=== PATIENT | female | born 1950 | race Caucasian/White ===

== ENCOUNTER → 2016-04-10 | Outpatient (CLI) | payer OTHER, MEDICARE ==
[~2016-04-10] MED LIST: AMITRIPTYLINE H75 M1 PO; AMITRIPTYLINE75 MG PO; ASPIRIN 32325 MG/TAB PO; BONIVA PO; BONIVA150 MG PO; CALTRATE 600 +1 TAB PO; CALTRATE 600+D1 TAB PO; CLARITIN 1010 MG/TAB PO; COZAAR100 MG PO; CRUTCHES; CYMBALTA 60MG60 MG PO; CYMBALTA60 MG PO; DIAZEPAM2 MG PO; DULERA1 ARO IH; FOSINOPRIL10 MG PO; IMITREX25 MG PO; ISONIAZID100 MG PO; ISONIAZID300 MG PO; KETAMINE HCL 50 MG/ML PO; KETAMINE PO; LEVAQUIN 5500 MG/TA1 PO; METAMUCIL1 PDR PO; MONOPRIL10 MG PO; NEURONTIN100 MG/CAP PO; NORCO 325 MG-51 TAB PO; OMEGA-3 FISH1200 MG PO; OXYCONTIN20 MG PO; PERCOCET 325 MG1 TA2 PO; PREDNISONE20 MG PO; PRIFTIN150 MG PO; PROAIR HFA0.09 MG/AC IH; ROXICODONE 55 MG/TAB PO; ROXICODONE15 MG PO; SINGULAIR 110 MG/TAB PO; SYSTANE LUBRICAN5 ML OP; TOPAMAX200 MG PO; TUSS PO; VALIUM 2MG T2 MG/TAB PO; VITAMIN B-6100 MG PO; VITAMIN B11000 MCG/M IM; WELLBUTRIN XL150 MG PO; WOMEN'S ONE DAI1 TAB PO; ZANAFLEX CAPSULE2 MG PO; ZANAFLEX2 MG PO; ZITHROMAX 250M250 MG PO; [UNRECOGNIZED DRUG - OTHER] PO
== END ==
LOC: BHSO 14:05
DX: F43.10 Post-traumatic stress disorder, unspecified (principal)

== ENCOUNTER → 2016-05-31 | Outpatient (CLI) | payer MEDICARE | LOC: BHSO 13:59 | DX: F06.32 Mood disorder due to known physiological condition with major depressive-like episode (principal) ==

== ENCOUNTER → 2016-07-31 | Outpatient (CLI) | payer MEDICARE | LOC: BHSO 14:07 | DX: F41.1 Generalized anxiety disorder (principal) ==

== ENCOUNTER → 2016-09-30 | Outpatient (CLI) | payer MEDICARE, OTHER | LOC: BHSO 14:30 | DX: F06.32 Mood disorder due to known physiological condition with major depressive-like episode (principal) ==

== ENCOUNTER → 2016-10-15 | Outpatient (CLI) | payer MEDICARE, OTHER | LOC: MC.RAD 10:40 | DX: Z12.31 Encounter for screening mammogram for malignant neoplasm of breast (principal) ==

== ENCOUNTER → 2016-12-09 | Outpatient (CLI) | payer MEDICARE, OTHER | LOC: BHSO 12:59 | DX: F06.32 Mood disorder due to known physiological condition with major depressive-like episode (principal) ==

== ENCOUNTER 2017-02-09 18:08 | Emergency (ER) | payer MEDICARE, OTHER ==
[~2017-02-09] VITALS: Ht 162.6 cm; Wt 66.4 kg
[2017-02-09 18:13] VITALS: TEMP 97.2
[2017-02-09 18:57] LABS: BASO # 0.1 (0.0-0.2); BASO % 0.9 % (0.0-2.0); EOS # 0.4 (0.0-0.7); EOS % 3.9 % (0-4.0); GRAN # 6.9 (1.4-6.5); GRAN % 63.6 % (42.2-75.2); HEMATOCRIT 37.2 % (37.0-47.0); LYMPH # 2.6 (1.2-3.4); LYMPH % 23.9 % (20.0-51.0); MEAN CELL VOLUME 101 fl (80.0-100.0); MEAN CORPUSCULAR HEMOGLOBIN 32 pg (27.0-31.0); MEAN CORPUSCULAR HGB CONC 32 g/dl (33.0-37.0); MEAN PLATELET VOLUME 9.4 fl (7.4-10.4); MONO # 0.8 (0.1-0.6); MONO % 7.1 % (1.7-9.3); PLATELET COUNT 270 K/mm3 (130-400); WHITE BLOOD COUNT 10.9 K/mm3 (4.8-10.8)
[2017-02-09 19:01] LABS: HEMOGLOBIN 11.8 g/dl (12.5-16.0)
[2017-02-09 19:07] LABS: PROTHROMBIN TIME 11.2 SECONDS (9.7-12.8)
[2017-02-09 19:10] LABS: PARTIAL THROMBOPLASTIN TIME 28.6 SECONDS (26.0-37.0)
[2017-02-09 19:11] LABS: ADJUSTED CALCIUM 8.9 mg/dL (8.4-10.2); ALANINE AMINOTRANSFERASE 29 U/L (9-52); ALBUMIN 4.3 gm/dL (3.5-5.0); ALKALINE PHOSPHATASE 94 U/L (50-136); ANION GAP 14 mmol/L (7-16); BILIRUBIN,TOTAL 0.4 mg/dL (0.0-1.0); BLOOD UREA NITROGEN 9 mg/dL (7-17); CALCIUM 9.1 mg/dL (8.4-10.2); CARBON DIOXIDE 20 mmol/L (22-30); CHLORIDE 105 mmol/L (98-107); CREATININE, serum 0.79 mg/dL (0.52-1.25); GLUCOSE 70 mg/dL (74-106); POTASSIUM 3.6 mmol/L (3.4-5.0); SODIUM 139 mmol/L (137-145)
[2017-02-09 19:22] LABS: TROPONIN-I < 0.012 ng/mL (0.000-0.034)
[2017-02-09] MEDS ORDERED: CEPHALEXIN500 M1 PO (21:10)
[2017-02-09 21:28] VITALS: BP 128/71; PULSE 89
== END 2017-02-09 21:28 | disposition home or self-care (01) ==
LOC: COL.ER 18:08
PROVIDERS: Emergency Medicine
DX: S00.81XA Abrasion of other part of head, initial encounter (principal); S80.02XA Contusion of left knee, initial encounter; S50.812A Abrasion of left forearm, initial encounter; Z87.39 Personal history of other diseases of the musculoskeletal system and connective tissue; W18.39XA Other fall on same level, initial encounter; Y93.01 Activity, walking, marching and hiking; Y92.410 Unspecified street and highway as the place of occurrence of the external cause
CPT/HCPCS: J2765; J3010; J7040; Q9967

== ENCOUNTER → 2017-03-05 | Outpatient (CLI) | payer MEDICARE, OTHER ==
[~2017-03-05] MED LIST changes: +CEPHALEXIN500 M1 PO
== END ==
LOC: BHSO 10:38
DX: F06.32 Mood disorder due to known physiological condition with major depressive-like episode (principal)

== ENCOUNTER 2017-03-23 16:33 | Emergency (ER) | payer MEDICARE, OTHER ==
[~2017-03-23] VITALS: Ht 162.6 cm; Wt 64.1 kg
[2017-03-23 16:36] VITALS: TEMP 98.6
[2017-03-23] MEDS ORDERED: PREDNISONE20 MG PO ×2 (17:00→17:16)
[2017-03-23 17:14] VITALS: BP 137/102; PULSE 88
== END 2017-03-23 17:15 | disposition home or self-care (01) ==
LOC: COL.ER 16:33
DX: H93.13 Tinnitus, bilateral (principal); H91.93 Unspecified hearing loss, bilateral; G43.909 Migraine, unspecified, not intractable, without status migrainosus; Z87.891 Personal history of nicotine dependence

== ENCOUNTER → 2017-06-03 | Outpatient (CLI) | payer MEDICARE, OTHER | LOC: BHSO 13:09 | DX: F06.32 Mood disorder due to known physiological condition with major depressive-like episode (principal) | CPT/HCPCS: G0463 ==

== ENCOUNTER 2017-08-21 22:03 | Emergency (ER) | payer MEDICARE, OTHER ==
[~2017-08-21] VITALS: Ht 165.1 cm; Wt 68.2 kg
[2017-08-21 22:07] VITALS: TEMP 98.7
[2017-08-21 23:15] VITALS: BP 128/80; PULSE 95
== END 2017-08-21 23:19 | disposition home or self-care (01) ==
LOC: COL.ER 22:03
DX: S61.011A Laceration without foreign body of right thumb without damage to nail, initial encounter (principal); W26.0XXA Contact with knife, initial encounter

== ENCOUNTER → 2017-12-03 | Outpatient (CLI) | payer MEDICARE, OTHER | LOC: BHSO 13:09 | DX: F06.32 Mood disorder due to known physiological condition with major depressive-like episode (principal) | CPT/HCPCS: G0463 ==

== ENCOUNTER 2017-12-13 15:22 | Emergency (ER) | payer MEDICARE, OTHER ==
[~2017-12-13] VITALS: Ht 162.6 cm; Wt 64.1 kg
[2017-12-13 15:26] VITALS: BP 150/95; TEMP 99.3
[2017-12-13] MEDS ORDERED: CEPHALEXIN500 M1 PO (15:47)
[2017-12-13] MEDS ORDERED: ATARAX50 MG PO (15:51)
[2017-12-13] MEDS ORDERED: PREDNISONE20 MG PO (16:14)
[2017-12-13 16:50] VITALS: PULSE 96
== END 2017-12-13 16:50 | disposition home or self-care (01) ==
LOC: COL.ER 15:22
DX: S30.811A Abrasion of abdominal wall, initial encounter (principal); S30.810A Abrasion of lower back and pelvis, initial encounter; S20.412A Abrasion of left back wall of thorax, initial encounter; S20.411A Abrasion of right back wall of thorax, initial encounter; S50.812A Abrasion of left forearm, initial encounter; S50.811A Abrasion of right forearm, initial encounter; S40.812A Abrasion of left upper arm, initial encounter; S40.811A Abrasion of right upper arm, initial encounter; L29.8 Other pruritus; F32.9 Major depressive disorder, single episode, unspecified; F41.9 Anxiety disorder, unspecified; Z86.73 Personal history of transient ischemic attack (TIA), and cerebral infarction without residual deficits; Z79.52 Long term (current) use of systemic steroids; Z79.51 Long term (current) use of inhaled steroids; X58.XXXA Exposure to other specified factors, initial encounter
CPT/HCPCS: J1100

== ENCOUNTER → 2018-04-10 | Outpatient (CLI) | payer MEDICARE, OTHER ==
[~2018-04-10] MED LIST changes: +ASPI325T6 PO; +ATARAX50 MG PO; +COZAAR 50MG50 MG/TAB PO; +DUO-KAPS1 CAP PO; +NEURONTIN800 MG/TAB PO; +NEXIUM 40MG40 MG PO; +RT ADVAIR 528 DISKUS IH; +SENOKOT S 50 MG1 TAB PO; +SEROQUEL XR150 MG PO; +TYLENOL 500MG500 MG PO; +VITAMINC500CH PO; +WELLBUTRIN XL300 M1 PO
== END ==
LOC: MC.RAD 10:24
DX: Z12.31 Encounter for screening mammogram for malignant neoplasm of breast (principal)

== ENCOUNTER → 2018-05-06 | Outpatient (CLI) | payer MEDICARE, OTHER | LOC: COL.LAB 10:57 | DX: Z01.818 Encounter for other preprocedural examination (principal) ==

== ENCOUNTER 2018-05-14 16:07 | Inpatient (IN) | payer MEDICARE, OTHER ==
[~2018-05-14] VITALS: Ht 162.7 cm; Wt 63.0 kg
[2018-05-27] VITALS (12 sets, daily range): BP systolic 91–125; BP diastolic 47–79; PULSE 91–100; TEMP 97.7–99
[2018-05-27] MEDS ORDERED: PROAIR HFA0.09 MG/AC IH (01:10)
[2018-05-27] MEDS ORDERED: CYMBALTA 30MG30 MG PO (01:12)
[2018-05-27] MEDS ORDERED: ROXICODONE 55 MG/TAB PO (01:16)
[2018-05-27] MEDS ORDERED: BACTRIM DS 8001 TAB PO (01:17)
[2018-05-27] MEDS ORDERED: RT ADVAIR 228 DISKUS IH (05:34)
--- NOTE | 2018-05-27 06:16 | NUR ---
Patient admitted to the floor at 0520. Admission B and assessment completed. Allergies and med-rec reviewed and updated. Patient prepared for surgery with no incidents. Left hip scrubbed and marked for surgery, pedal pulses marked, sb hose applied to the RLE, 20 g IV started to right wrist and pre-op medications given. Patient does have multiple scabs around left hip, reports she saw Dr. Giraldo yesterday and he cleared her skin. Su Borja and VIVIAN Smith notified of no surgical H&P on chart.
--- NOTE | 2018-05-27 06:31 | NUR ---
Patient sent down to surgery with Jose Miguel at this time.
--- NOTE | 2018-05-27 07:03 | NUR ---
report from Fabienne POSEY, patient to surgery this am.
--- NOTE | 2018-05-27 09:35 | NUR ---
PT TO ROOM 326 PER BED WITH REPORT FROM UMAIR POSEY PACU @0900. PT IS A/O X3 LUNGS CLEAR, BOWEL SOUNDS PRESENT. AQUACEL DRESSING TO LEFT HIP CDI. SCDS AND TEDS BILATERALLY. IV TO PUMP PER ORDERS. FAMILY AT BEDSIDE. 02 @3L PNC TO MAINTAIN SATS.
--- NOTE | 2018-05-27 12:21 | NUR ---
PT IS SLEEPING AND APNIC, INCREASED O2 TO 4 L PNC. MAINTAINING SATS IN MID 90'S.
--- NOTE | 2018-05-27 12:29 | NUR ---
First visit from the administrative assistant data entry. No needs right now.
--- NOTE | 2018-05-27 14:26 | NUR ---
SW met with patient about discharge planning. Patient lives independently at home with her and daughter. She plans to return there upon discharge. Patient reports she will get outpatient PT. Patient's PCP is Dr Meza and she obtains prescriptions from [facility]. Patient has a front wheeled walker and four wheeled walker at home but no other DME is reported. Patient does not use any home health services. Patient does have a DPOA and copies are in the EMR. ELISA does not anticipate any discharge needs.
--- NOTE | 2018-05-27 15:16 | NUR ---
CALLED AND LEFT MESSAGE WITH LICENSED CLUB MANAGER RN THAT NO POST OP ABX ORDER RECIEVED.
--- NOTE | 2018-05-27 16:17 | NUR ---
PT UP TO BR WITH SBAX1. PT VOIDED AND THEN RETURNED TO RECLINER FOR DINNER.
--- NOTE | 2018-05-27 18:30 | NUR ---
REPORT TO DEION POSEY.
--- NOTE | 2018-05-27 19:58 | NUR ---
Patient requesting Seroquel that she normally takes as she states to help her sleep at night. Reviewed with patient that it was not continued in the med-rec. Patient stated she would not be able to sleep without the medication. Called bennett Thomason on-call PA, orders received to continue patient's Seroquel.
--- NOTE | 2018-05-27 20:35 | NUR ---
Assessment completed. Patient is A&O x 4. VSS, on room air. Reports minimal pain at this time while laying in bed, scheduled Oxycodone given this evening per patient's request. Aquacell dressing to left hip is CDI with an ice pack applied. Multiple small healing scabs noted to left hip/buttock area. Pedal pulses intact. BLE sb hose/scds on. Encouraged ankle pumps while laying in bed. Tolerating diet with no c/o nausea. Voiding with no difficulities. IVF infusing with intermittent antibiotic per orders. Up with standby assist with walker, gait is steady. Denies any concerns or needs at this time. Bed is in a low position with call light in reach.
[2018-05-28] VITALS (7 sets, daily range): BP systolic 109–150; BP diastolic 54–84; PULSE 76–87; TEMP 98–98.9
--- NOTE | 2018-05-28 05:17 | NUR ---
Patient has rested well through the night after receiving scheduled Seroquel. VSS, remains on room air. Reports minimal pain this morning to left hip. Aquacell dressing to left hip remains CDI with a fresh ice pack applied at this time. Patient has been up with standby assist with walker to the bathroom through the night, gait remains steady. Denies any concerns or needs, call light is within reach.
--- NOTE | 2018-05-28 06:44 | NUR ---
report from Fabienne POSEY.
--- NOTE | 2018-05-28 08:05 | NUR ---
PT DOING WELL, UP TO RECLINER FOR BREAKFAST AFTER USING BR. PAIN WELL CONTROLLED WITH PO MEDS. DRESSING TO LEFT HIP CDI WITH AQUACELL OVER INCISION. TERESE PARK IN TO SEE PT THIS AM. PLAN ON DISCHARGE TOMMORROW.
[2018-05-28 08:11] LABS: HEMATOCRIT 33.2 % (37.0-47.0); HEMOGLOBIN 10.5 g/dl (12.5-16.0)
--- NOTE | 2018-05-28 13:16 | NUR ---
PATIENT OUT TO [facility] FOR GROUP THERAPY SBAX1.
--- NOTE | 2018-05-28 13:24 | NUR ---
PATIENT RETURNED TO ROOM AFTER THERAPY AND POSITIONED FOR COMFORT IN BED.
--- NOTE | 2018-05-28 14:07 | NUR ---
pt rating pain at3/10 after therapy.
--- NOTE | 2018-05-28 18:36 | NUR ---
REPORT TO MARTÍNEZ POSEY.
--- NOTE | 2018-05-28 20:30 | NUR ---
HS meds all reviewed and given. Denies pain at this time. Alert and oriented x4. Pleasant. Sits up in recliner. Declines snack. Ambulates in hallway with VOLUNTEER FIRE FIGHTER. Esteban hose removed and reapplied by nurse.
--- NOTE | 2018-05-28 22:30 | NUR ---
Reports pain left hip following ambulation and requests roxycodone-5mg given. Rests in bed on right side. Ice to left hip and SCD's on.
--- NOTE | 2018-05-29 01:00 | NUR ---
Patient rests on right side with eyes closed. Respirations with ease.
--- NOTE | 2018-05-29 03:24 | NUR ---
Patient continues resting with eyes closed. Respirations with ease.
[2018-05-29 03:52] VITALS: BP 123/67; PULSE 77; TEMP 98
[2018-05-29 06:49] LABS: HEMATOCRIT 30.3 % (37.0-47.0); HEMOGLOBIN 9.6 g/dl (12.5-16.0)
[2018-05-29 07:26] VITALS: BP 132/67; PULSE 74; TEMP 97.8
--- NOTE | 2018-05-29 08:00 | NUR ---
PT ALERT AND ORIENTED. VSS. HEAD TO TOE ASSESSMENT WNL. AQUACELL DRESSING TO LEFT HIP C/D/I. PTS RATING PAIN 4/10, PREMEDICATED PT WITH PRN ROXICODONE. PT HAD C/O PAIN TO ORTHO THIS AM. XRAY COMPLETED THIS MORNING. PT DISCHARGING TO HOME PENDING XRAY RESULTS.
[2018-05-29 11:33] VITALS: BP 131/82; PULSE 88; TEMP 98.2
--- NOTE | 2018-05-29 15:36 | NUR ---
PATIENT DISCHARGING VIA WHEELCHAIR TO PERSONAL VEHICLE WITH . GAVE DISCHARGE INSTRUCTIONS, PRESCRIPTIONS, DRESSING & FOLLOW UP APTS. ANSWERED ALL QUESTIONS/CONCERNS. SENT HOME PERSONAL BELONGINGS. STUDENT NURSE DC'Iqra IV. PATIENT DISCHARGING
== END 2018-05-29 15:40 | disposition home or self-care (01) | DRG 470 ==
LOC: SURG 05-27 05:07 → JCC 05-27 07:30 → SURG 05-27 09:31
PROVIDERS: ADMIT Orthopaedic Surgery
PROC: 0SRB0JA Replacement of Left Hip Joint with Synthetic Substitute, Uncemented, Open Approach (ICD-10-PCS; principal; 2018-05-27 07:30)
PROC: 0QP704Z Removal of Internal Fixation Device from Left Upper Femur, Open Approach (ICD-10-PCS; 2018-05-27 07:30)
DX: M16.12 Unilateral primary osteoarthritis, left hip (principal); I10 Essential (primary) hypertension; Z87.891 Personal history of nicotine dependence; M80.052G Age-related osteoporosis with current pathological fracture, left femur, subsequent encounter for fracture with delayed healing; E78.5 Hyperlipidemia, unspecified; J45.909 Unspecified asthma, uncomplicated
CPT/HCPCS: A9284; C1713; C1776; J0690; J1100; J1170; J2405; J2704; J3010; J7030; J7121

== ENCOUNTER → 2018-05-22 | Outpatient (CLI) | payer MEDICARE, OTHER ==
[~2018-05-22] MED LIST changes: +BACTRIM DS 8001 TAB PO; +CYMBALTA 30MG30 MG PO; +RT ADVAIR 228 DISKUS IH
== END ==
LOC: BHSO 15:36
DX: F43.10 Post-traumatic stress disorder, unspecified (principal)
CPT/HCPCS: G0463

== ENCOUNTER → 2018-08-27 | Outpatient (CLI) | payer MEDICARE, OTHER | LOC: BHSO 10:58 | DX: F06.32 Mood disorder due to known physiological condition with major depressive-like episode (principal) | CPT/HCPCS: G0463 ==

== ENCOUNTER → 2018-09-03 | Outpatient (CLI) | payer MEDICARE, OTHER ==
[2018-09-03 16:24] LABS: HEMOGLOBIN 14.9 g/dl (12.5-16.0); MEAN CELL VOLUME 97 fl (80.0-100.0); MEAN CORPUSCULAR HEMOGLOBIN 32 pg (27.0-31.0); MEAN CORPUSCULAR HGB CONC 33 g/dl (33.0-37.0); MEAN PLATELET VOLUME 9.4 fl (7.4-10.4); PLATELET COUNT 371 K/mm3 (130-400); RED BLOOD COUNT 4.64 M/mm3 (4.10-5.30); REDCELL DISTRIBUTION WIDTH-CV 12.2 % (11.5-14.5)
[2018-09-03 16:43] LABS: ERYTHROCYTE SEDIMENTATION RATE 7 mm/hr (0-30)
== END ==
LOC: COL.LAB 15:46
PROVIDERS: Orthopaedic Surgery
DX: M25.552 Pain in left hip (principal)

== ENCOUNTER 2018-09-30 06:59 | Day surgery (SDC) | payer MEDICARE, OTHER ==
[2018-09-30] VITALS (8 sets, daily range): BP systolic 91–135; BP diastolic 49–74; PULSE 80–96; TEMP 97.7–98.3
[~2018-09-30] VITALS: Ht 162.6 cm; Wt 62.9 kg
[2018-09-30] MEDS ORDERED: COZAAR 50MG50 MG/TAB PO (08:31)
[2018-09-30] MEDS ORDERED: ASPIRIN 32325 MG/TAB PO (08:32)
[2018-09-30] MEDS ORDERED: CYMBALTA 60MG60 MG PO (08:33)
[2018-09-30] MEDS ORDERED: ULTRAM 50MG TAB50 MG PO ×2 (08:37→08:38)
[2018-09-30] MEDS ORDERED: SPIRIVA RE2.5 MCG/Ac IH (08:40)
[2018-09-30] MEDS ORDERED: RT ADVAIR 228 DISKUS IH (08:41)
--- NOTE | 2018-09-30 11:03 | NUR ---
Patient returns to room 1 per cart from PACU and arouses to verbal stimuli. IV fluids infusing and denies pain or nausea. Aquacel dressing on the left hip clean and dry. Siderails up x2 and call light in reach.
[2018-09-30] MEDS ORDERED: NORCO 325 MG-7.1 TAB PO (11:17)
--- NOTE | 2018-09-30 11:33 | NUR ---
Continues to rest without complaints of pain or nausea.
--- NOTE | 2018-09-30 11:48 | NUR ---
Continues to rest without complaints of pain or nausea. Spouse in room.
--- NOTE | 2018-09-30 12:03 | NUR ---
More awake and taking water. Spouse in room.
--- NOTE | 2018-09-30 12:33 | NUR ---
Drinking water and denies pain or nausea. Given menu to order lunch.
--- NOTE | 2018-09-30 13:02 | NUR ---
Eating lunch and continues to deny pain or nausea. Aquacel dressing on the left hip dry and intact.
--- NOTE | 2018-09-30 13:33 | NUR ---
Up to the bathroom using walker and gait is steady with weight bearing as tolerated. Voids and returns to room. Patient dresses self. INT needle discontinued and site is free of redness.
--- NOTE | 2018-09-30 14:00 | NUR ---
Given dismissal instructions and voices understanding of home cares and follow up as scheduled pre-op. Provided script for Lincoln and copy of dismissal instructions.
--- NOTE | 2018-09-30 14:07 | NUR ---
Patient dismissed to home per private vehicle driven by spouse and taken to the front door per wheelchair and assisted into vehicle.
== END 2018-09-30 14:00 | disposition home or self-care (01) ==
LOC: SDCO 06:59
DX: M70.62 Trochanteric bursitis, left hip (principal); Z96.642 Presence of left artificial hip joint; Z79.899 Other long term (current) drug therapy; Z79.82 Long term (current) use of aspirin; G47.33 Obstructive sleep apnea (adult) (pediatric); J45.909 Unspecified asthma, uncomplicated; G43.909 Migraine, unspecified, not intractable, without status migrainosus; G89.29 Other chronic pain; R56.9 Unspecified convulsions; Z86.39 Personal history of other endocrine, nutritional and metabolic disease; Z86.79 Personal history of other diseases of the circulatory system; F41.9 Anxiety disorder, unspecified; F32.9 Major depressive disorder, single episode, unspecified; M48.02 Spinal stenosis, cervical region; M54.32 Sciatica, left side; E11.8 Type 2 diabetes mellitus with unspecified complications
CPT/HCPCS: J0690; J1100; J1170; J1885; J2250; J2405; J2704; J2765; J3010; J7120

== ENCOUNTER → 2018-10-06 | Outpatient (CLI) | payer MEDICARE, OTHER ==
[~2018-10-06] MED LIST changes: +NORCO 325 MG-7.1 TAB PO; +SPIRIVA RE2.5 MCG/Ac IH; +ULTRAM 50MG TAB50 MG PO
== END ==
LOC: COL.VAS 13:54
DX: Z13.6 Encounter for screening for cardiovascular disorders (principal); R60.0 Localized edema

== ENCOUNTER → 2018-10-16 | Outpatient (CLI) | payer MEDICARE, OTHER | LOC: BHSO 15:21 | DX: F06.32 Mood disorder due to known physiological condition with major depressive-like episode (principal) | CPT/HCPCS: G0463 ==

== ENCOUNTER → 2019-01-14 | Outpatient (CLI) | payer MEDICARE, OTHER | LOC: BHSO 15:22 | DX: F06.32 Mood disorder due to known physiological condition with major depressive-like episode (principal) | CPT/HCPCS: G0463 ==

== ENCOUNTER 2019-01-29 23:02 | Emergency (ER) | payer MEDICARE, OTHER ==
[~2019-01-29] VITALS: Ht 162.6 cm; Wt 66.4 kg
[2019-01-29 23:47] LABS: BASO # 0.1 (0.0-0.2); BASO % 0.8 % (0.0-2.0); EOS # 0.6 (0.0-0.7); GRAN # 7.4 (1.4-6.5); GRAN % 66.9 % (42.2-75.2); HEMATOCRIT 41.4 % (37.0-47.0); HEMOGLOBIN 13.3 g/dl (12.5-16.0); LYMPH # 2.2 (1.2-3.4); LYMPH % 19.7 % (20.0-51.0); MEAN CELL VOLUME 99 fl (80.0-100.0); MEAN CORPUSCULAR HEMOGLOBIN 32 pg (27.0-31.0); MEAN CORPUSCULAR HGB CONC 32 g/dl (33.0-37.0); MEAN PLATELET VOLUME 9.2 fl (7.4-10.4); MONO # 0.8 (0.1-0.6); MONO % 6.8 % (1.7-9.3); PLATELET COUNT 358 K/mm3 (130-400); RED BLOOD COUNT 4.17 M/mm3 (4.10-5.30); REDCELL DISTRIBUTION WIDTH-CV 13.1 % (11.5-14.5)
[2019-01-29 23:56] LABS: ALBUMIN 4.3 gm/dL (3.5-5.0); BILIRUBIN,TOTAL 0.3 mg/dL (0.0-1.0); CALCIUM 8.9 mg/dL (8.4-10.2); CREATININE, serum 0.66 (0.52-1.25); POTASSIUM 3.9 mmol/L (3.4-5.0); TOTAL PROTEIN 7.2 gm/dL (6.4-8.2)
[2019-01-30 00:27] LABS: PROTHROMBIN TIME 11.2 SECONDS (9.7-12.8)
[2019-01-30] MEDS ORDERED: VOLTAREN 75 DR75 MG PO (01:22)
[2019-01-30] MEDS ORDERED: LIDODERM 5% PATC1 EA TP (01:22)
[2019-01-30 01:27] VITALS: BP 132/76; PULSE 92; TEMP 98.4
== END 2019-01-30 01:38 | disposition home or self-care (01) ==
LOC: COL.ER 23:02
PROVIDERS: Emergency Medicine
DX: S20.211A Contusion of right front wall of thorax, initial encounter (principal); I10 Essential (primary) hypertension; Z87.891 Personal history of nicotine dependence; W19.XXXA Unspecified fall, initial encounter; Z79.82 Long term (current) use of aspirin
CPT/HCPCS: A9284; J1885; J2405; J3010

== ENCOUNTER → 2019-04-29 | Outpatient (CLI) | payer MEDICARE, OTHER ==
[~2019-04-29] MED LIST changes: +LIDODERM 5% PATC1 EA TP; +VOLTAREN 75 DR75 MG PO
== END ==
LOC: COL.RAD 08:05
DX: M51.36 Other intervertebral disc degeneration, lumbar region (principal); M48.061 Spinal stenosis, lumbar region without neurogenic claudication; Z98.1 Arthrodesis status; S22.040A Wedge compression fracture of fourth thoracic vertebra, initial encounter for closed fracture; S22.050A Wedge compression fracture of T5-T6 vertebra, initial encounter for closed fracture; M51.24 Other intervertebral disc displacement, thoracic region; M48.04 Spinal stenosis, thoracic region

== ENCOUNTER → 2019-06-01 | Outpatient (CLI) | payer MEDICARE, OTHER ==
[~2019-06-01] MED LIST changes: +CETAPHIL COMPO480 ML TOP; +FEMININE SUPPOR1 TA2 PO; +MELATONIN1 MG PO; +PREDNISONE10 MG PO
== END ==
LOC: MHCPAIN 13:33
DX: M54.5 Low back pain (principal); M48.54XA Collapsed vertebra, not elsewhere classified, thoracic region, initial encounter for fracture; M96.1 Postlaminectomy syndrome, not elsewhere classified; M47.817 Spondylosis without myelopathy or radiculopathy, lumbosacral region; G89.29 Other chronic pain
CPT/HCPCS: G0463

== ENCOUNTER 2019-07-14 16:25 | Inpatient (IN) | payer MEDICARE, OTHER ==
[~2019-07-14] VITALS: Ht 162.6 cm; Wt 61.5 kg
[2019-07-14 16:54] LABS: HEMATOCRIT 44.7 % (37.0-47.0); HEMOGLOBIN 14.2 g/dl (12.5-16.0); MEAN CELL VOLUME 101 fl (80.0-100.0); MEAN CORPUSCULAR HEMOGLOBIN 32 pg (27.0-31.0); MEAN CORPUSCULAR HGB CONC 32 g/dl (33.0-37.0); PLATELET COUNT 305 K/mm3 (130-400); RED BLOOD COUNT 4.43 M/mm3 (4.10-5.30); REDCELL DISTRIBUTION WIDTH-CV 13.7 % (11.5-14.5)
[2019-07-14 17:03] LABS: ALBUMIN 3.9 gm/dL (3.5-5.0); BILIRUBIN,TOTAL 0.8 mg/dL (0.0-1.0); CALCIUM 9.1 mg/dL (8.4-10.2); CREATININE, serum 0.71 (0.52-1.25); POTASSIUM 3.5 mmol/L (3.4-5.0); TOTAL PROTEIN 6.8 gm/dL (6.4-8.2)
[2019-07-14 17:57] LABS: BAND 6 % (0-10); LYMPHOCYTE 12 % (20.0-51.0); NEUTROPHILS 78 % (42.0-75.2)
[2019-07-14 17:58] LABS: PLATELET ESTIMATE NORMAL (NORMAL)
[2019-07-14 17:59] LABS: HYPOCHROMIA 2+
[2019-07-14 18:00] LABS: STOMATOCYTE 1+
--- NOTE | 2019-07-14 21:00 | NUR ---
Pt report received from Gabriel POSEY in the ED. Pt is being transferred to the medical unit shortly.
[2019-07-14 21:15] VITALS: BP 155/92; PULSE 92; TEMP 98.5
--- NOTE | 2019-07-14 23:00 | NUR ---
Pt has had some pain since transferring to the medical unit which this chief underwriter addressed via IV morphine per orders and MAR. Pt is A&Ox4 and able to make wants/needs known without difficulty. Pt is noted to have a large amount of small scattered sores across her extremeties, torso, and pelvis. Pt states that she had an allergic reaction and had uncontrolled itching; this chief underwriter noted that these sores do not appear to be from scratching as evidenced by how they are dispersed across her body as well as the general shape of the sores. Pt denies bedbugs or scabbies. Pt was seen by Dr Alfaro upon admission to the medical unit with no verbal report given by in regards to these sores. Pt is able to use call light to notify staff of her wants/needs. Pt education on NPO status and beverage removed from her bedside table once the NPO order was noted. No s/s of distress noted. Will continue to monitor.
[2019-07-14 23:42] VITALS: BP 151/92; PULSE 90; TEMP 98.2
[2019-07-15] VITALS (7 sets, daily range): BP systolic 109–159; BP diastolic 69–123; PULSE 70–107; TEMP 97.5–99.8
--- NOTE | 2019-07-15 03:13 | NUR ---
Pt reports that the morhine she was given IV earlier in the shift did little to alleviate her pain. Pt was provided PRN Dilaudid about 30 minutes ago and reports that this dose of pain medication did not help very much. Education provided that she can have another dose now if the first dose was not enough to control her pain and Pt states that she would like another dose of dilaudid when available. Call light is at Pt side and no s/s of distress noted. Will continue to monitor.
--- NOTE | 2019-07-15 05:32 | NUR ---
Pt has been resting in bed peacefully with eyes closed since the last dose of Dilaudid was provided. Pt has call light at her side and other than dealing with her abdominal pain between the time she transferred to the unit and her last dose of Dilaudid about 0300. Will continue to monitor.
[2019-07-15 06:34] LABS: BASO % 0.3 % (0.0-2.0); EOS # 0.2 (0.0-0.7); EOS % 1.4 % (0-4.0); GRAN # 11.7 (1.4-6.5); GRAN % 82.9 % (42.2-75.2); HEMATOCRIT 42.3 % (37.0-47.0); HEMOGLOBIN 13.5 g/dl (12.5-16.0); LYMPH # 1.2 (1.2-3.4); LYMPH % 8.1 % (20.0-51.0); MEAN CELL VOLUME 101 fl (80.0-100.0); MEAN CORPUSCULAR HEMOGLOBIN 32 pg (27.0-31.0); MEAN CORPUSCULAR HGB CONC 32 g/dl (33.0-37.0); MONO # 0.9 (0.1-0.6); MONO % 6.3 % (1.7-9.3); PLATELET COUNT 297 K/mm3 (130-400); REDCELL DISTRIBUTION WIDTH-CV 13.5 % (11.5-14.5)
[2019-07-15 06:46] LABS: CALCIUM 8.2 mg/dL (8.4-10.2); CHOLESTEROL RISK RATIO 2.5; CREATININE, serum 0.56 (0.52-1.25); POTASSIUM 3.5 mmol/L (3.4-5.0)
[2019-07-15 08:28] LABS: PATHOLOGY DIFF REVIEW OK
--- NOTE | 2019-07-15 09:30 | NUR ---
ELISA met with the patient to complete initial intake. The patient lives in [place] with her and one of their daughters. The patient has two walkers and a shower chair. The patient's PCP is Dr. Meza and receives medications from [facility]. The patient has advanced directives in the EMR. The patient plans to return home at discharge with her providing transportation. There are no additional needs at this time.
[2019-07-15] MEDS ORDERED: WELLBUTRIN XL300 M1 PO (10:58)
--- NOTE | 2019-07-15 11:56 | NUR ---
VIVIAN Smith with Dr Conner notified of hypertension. No new orders, continue to monitor.
--- NOTE | 2019-07-15 12:09 | NUR ---
First visit from the lead cashier. No needs right now.
--- NOTE | 2019-07-15 21:00 | NUR ---
PT RESTING IN BED. ANXIOUS. SCRATCHING SKIN. SEE ASSESSMENT RE GENERALIZED SKIN ERUPTIONS. HAD BEEN TREATED FOR SCABIES BY DR BEATA BELL DERMATOLOGY. NOTIED Michelle MONTOYA- NO NEED FOR ISOLATION. PT HAVING ABD PAIN. SEE MAR FOR DILAUDID GIVEN. NO N/V NOTED. PT VERY ANXIOUS FROM SCRATCHING CONTINUALLY. SEE MAR FOR SEROQUEL GIVEN.
[2019-07-16 04:45] VITALS: BP 101/56; PULSE 101; TEMP 99.9
[2019-07-16 07:50] VITALS: BP 128/76; PULSE 97; TEMP 98
--- NOTE | 2019-07-16 10:06 | NUR ---
Transport Coordinator attended clinical rounds with the team. Hospitalist dicussed advancing diet as tolerated. SW to continue to follow.
--- NOTE | 2019-07-16 10:51 | NUR ---
PT IN BED, ITCHING JUANITA ARMS, ERRUPTIONS PRESENT FROM SCABIES, PT SCRATCHES THEM AND THEY REOPEN. PT COMPLAINING OF PAIN 8/10 IN ABDOMEN, DILAUDID GIVEN, AFTER REASSESSMENT PT SAYS PAIN IS DOWN TO 5/10. COUGH PRESENT, PT WEARING MASK FROM HOME. FLUIDS RUNNING, LUNGS SOUND CLEAR, MEDICATIONS GIVEN, FRESH ICE CHIPS BROUGHT IN, BED IN LOW POSITION, NO OTHER NEEDS AT THIS TIME.
[2019-07-16 11:52] VITALS: BP 144/79; PULSE 91; TEMP 98.9
[2019-07-16 18:05] VITALS: BP 132/85; PULSE 95; TEMP 99.2
--- NOTE | 2019-07-16 18:39 | NUR ---
PT IN BED SLEEPING MOST OF DAY, BED IN LOW POSITION, STILL COMPLAINTS OF ABD PAIN BUT NOT SEVERE ENOUGH TO REQUIRE PAIN MEDICATION ACCORDING TO PT. UNEVENFUL SHIFT, BED IN LOWEST POSITION, NO OTHER NEEDS AT THIS TIME.
[2019-07-16 20:15] VITALS: BP 129/76; PULSE 95; TEMP 99.2
[2019-07-16 23:27] VITALS: BP 93/54; PULSE 87; TEMP 97.9
[2019-07-17 04:30] VITALS: BP 142/77; PULSE 93; TEMP 99
--- NOTE | 2019-07-17 07:33 | NUR ---
Quiet night- did just have the one [place] before bed last night- VSS, highest temp 99.2
[2019-07-17 07:35] LABS: BASO % 0.2 % (0.0-2.0); EOS # 0.4 (0.0-0.7); EOS % 3.1 % (0-4.0); GRAN # 9.8 (1.4-6.5); GRAN % 80.1 % (42.2-75.2); LYMPH # 0.9 (1.2-3.4); LYMPH % 7.4 % (20.0-51.0); MEAN CELL VOLUME 102 fl (80.0-100.0); MEAN CORPUSCULAR HGB CONC 32 g/dl (33.0-37.0); MEAN PLATELET VOLUME 9.3 fl (7.4-10.4); MONO % 8.5 % (1.7-9.3); PLATELET COUNT 227 K/mm3 (130-400); RED BLOOD COUNT 3.39 M/mm3 (4.10-5.30); REDCELL DISTRIBUTION WIDTH-CV 13.8 % (11.5-14.5)
[2019-07-17 07:40] LABS: HEMATOCRIT 34.7 % (37.0-47.0); HEMOGLOBIN 11.2 g/dl (12.5-16.0); MEAN CORPUSCULAR HEMOGLOBIN 33 pg (27.0-31.0)
[2019-07-17 07:48] LABS: CALCIUM 8.3 mg/dL (8.4-10.2); CREATININE, serum 0.55 (0.52-1.25); POTASSIUM 3.1 mmol/L (3.4-5.0)
[2019-07-17 08:26] VITALS: BP 128/87; PULSE 107; TEMP 99.1
[2019-07-17] MEDS ORDERED: NORCO 325 MG-51 TAB PO (09:24)
--- NOTE | 2019-07-17 10:47 | NUR ---
PT IN BED UPON ENTERING. PT GIVEN DILAUDID DUE TO EXTREME ABD PAIN. PT STATED THIS HELPED HER PAIN BUT IT STARTED TO GO BACK UP AFTER AN HOUR. PT THEN RECIEVED NORCO AND PT NOT IN PAIN CURRENTLY. PT ATE MOST OF BREAKFAST, BED IN LOW POSITION, CALL LIGHT WITHIN REACH, WATER AT BEDSIDE, PT AWARE THAT THEY ARE DISCHARGING TODAY. FLUIDS RUNNING, MEDS GIVEN, PT ASSESSED. NO OTHER NEEDS AT THIS TIME.
[2019-07-17 11:56] VITALS: BP 133/71; PULSE 109; TEMP 99.2
--- NOTE | 2019-07-17 13:52 | NUR ---
PT ESCORTED OUT OF HOSPITAL INTO DAUGHTER'S CAR VIA WHEELCHAIR WITH PT BELONGINGS. DISCHARGE INSTRUCTIONS GIVEN, IV DC'D, NO OTHER NEEDS AT THIS TIME.
== END 2019-07-17 13:53 | disposition home or self-care (01) | DRG 440 ==
LOC: COL.ER 16:25 → MEDICAL 18:29
PROVIDERS: Family Medicine; Physician Assistant; ADMIT Student in an Organized Health Care Education/Training Program
DX: K85.90 Acute pancreatitis without necrosis or infection, unspecified (principal); J45.909 Unspecified asthma, uncomplicated; F41.9 Anxiety disorder, unspecified; F32.9 Major depressive disorder, single episode, unspecified; M54.9 Dorsalgia, unspecified; G89.29 Other chronic pain; R50.9 Fever, unspecified; K57.10 Diverticulosis of small intestine without perforation or abscess without bleeding; I10 Essential (primary) hypertension; L28.2 Other prurigo; D72.829 Elevated white blood cell count, unspecified; T38.0X5A Adverse effect of glucocorticoids and synthetic analogues, initial encounter; E87.6 Hypokalemia; F42.4 Excoriation (skin-picking) disorder; Z22.7 Latent tuberculosis; Z86.73 Personal history of transient ischemic attack (TIA), and cerebral infarction without residual deficits
CPT/HCPCS: 99222-AI; 99232-AI; 99239; J1170; J2270; J2405; J7030; J7120; J7512; Q9967

== ENCOUNTER → 2019-07-14 | Outpatient (CLI) | payer MEDICARE, OTHER ==
[~2019-07-14] MED LIST changes: -SEROQUEL XR150 MG PO; +SEROQUEL50 MG PO
== END ==
LOC: BHSO 13:40
DX: F06.32 Mood disorder due to known physiological condition with major depressive-like episode (principal)
CPT/HCPCS: G0463

== ENCOUNTER → 2019-07-30 | Outpatient (CLI) | payer MEDICARE, OTHER | LOC: COL.RAD 10:03 | DX: Z12.11 Encounter for screening for malignant neoplasm of colon (principal); K57.10 Diverticulosis of small intestine without perforation or abscess without bleeding; K85.90 Acute pancreatitis without necrosis or infection, unspecified; R93.5 Abnormal findings on diagnostic imaging of other abdominal regions, including retroperitoneum | CPT/HCPCS: A9537; J2270; J2805 ==

== ENCOUNTER 2019-08-18 13:10 | Emergency (ER) | payer MEDICARE, OTHER ==
[~2019-08-18] VITALS: Ht 162.6 cm; Wt 60.5 kg
[2019-08-18 13:15] VITALS: TEMP 98.1
[2019-08-18] MEDS ORDERED: MOBIC 7.5MG7.5 MG PO (14:33)
[2019-08-18 14:43] VITALS: BP 120/72; PULSE 94
== END 2019-08-18 14:43 | disposition home or self-care (01) ==
LOC: COL.ER 13:10
DX: M25.552 Pain in left hip (principal); I10 Essential (primary) hypertension; J84.10 Pulmonary fibrosis, unspecified; G89.29 Other chronic pain; M81.0 Age-related osteoporosis without current pathological fracture; E78.5 Hyperlipidemia, unspecified; G43.909 Migraine, unspecified, not intractable, without status migrainosus; Z86.15 Personal history of latent tuberculosis infection; Z87.891 Personal history of nicotine dependence; Z87.81 Personal history of (healed) traumatic fracture
CPT/HCPCS: J1885

== ENCOUNTER → 2019-08-26 | Outpatient (CLI) | payer MEDICARE, OTHER ==
[~2019-08-26] MED LIST changes: +MOBIC 7.5MG7.5 MG PO
== END ==
LOC: COL.RAD 09:12
DX: M25.552 Pain in left hip (principal); Z98.890 Other specified postprocedural states
CPT/HCPCS: A9503

== ENCOUNTER → 2019-09-01 | Outpatient (CLI) | payer MEDICARE, OTHER | LOC: MHCPAIN 13:18 | DX: M47.817 Spondylosis without myelopathy or radiculopathy, lumbosacral region (principal); M47.814 Spondylosis without myelopathy or radiculopathy, thoracic region; M96.1 Postlaminectomy syndrome, not elsewhere classified; M54.16 Radiculopathy, lumbar region; G89.29 Other chronic pain | CPT/HCPCS: G0463 ==

== ENCOUNTER 2019-09-22 07:11 | Observation (INO) | payer MEDICARE, OTHER ==
[~2019-09-22] VITALS: Ht 162.6 cm; Wt 59.6 kg
[2019-09-22 08:29] LABS: BASO # 0.1 (0.0-0.2); BASO % 0.4 % (0.0-2.0); EOS # 0.3 (0.0-0.7); GRAN % 81.7 % (42.2-75.2); HEMATOCRIT 35.9 % (37.0-47.0); HEMOGLOBIN 11.5 g/dl (12.5-16.0); LYMPH # 1.3 (1.2-3.4); LYMPH % 7.8 % (20.0-51.0); MEAN CELL VOLUME 95 fl (80.0-100.0); MEAN CORPUSCULAR HEMOGLOBIN 30 pg (27.0-31.0); MEAN CORPUSCULAR HGB CONC 32 g/dl (33.0-37.0); MEAN PLATELET VOLUME 8.5 fl (7.4-10.4); MONO # 1.2 (0.1-0.6); PLATELET COUNT 450 K/mm3 (130-400); RED BLOOD COUNT 3.78 M/mm3 (4.10-5.30); REDCELL DISTRIBUTION WIDTH-CV 14.5 % (11.5-14.5)
[2019-09-22 08:34] LABS: INR 1.1 (0.8-3.0); PROTHROMBIN TIME 12.3 SECONDS (9.7-12.8)
[2019-09-22 08:37] LABS: ALANINE AMINOTRANSFERASE 12 U/L (4-34); ALBUMIN 3.4 gm/dL (3.5-5.0); ALKALINE PHOSPHATASE 176 U/L (50-136); ANION GAP 12 mmol/L (7-16); AST,SGOT 28 U/L (15-37); BILIRUBIN,TOTAL 0.4 mg/dL (0.0-1.0); BLOOD UREA NITROGEN 5 mg/dL (7-17); CALCIUM 8.5 mg/dL (8.4-10.2); CARBON DIOXIDE 25 mmol/L (22-30); CHLORIDE 103 mmol/L (98-107); CREATININE, serum 0.53 (0.52-1.25); GLUCOSE 104 mg/dL (74-106); POTASSIUM 3.7 mmol/L (3.4-5.0); SODIUM 141 mmol/L (137-145)
[2019-09-22 08:37] LABS: PARTIAL THROMBOPLASTIN TIME 30.9 SECONDS (26.0-37.0)
[2019-09-22 08:49] LABS: TROPONIN-I < 0.012 ng/mL (0.000-0.035)
[2019-09-22 10:53] LABS: COLLECTION METHOD CLEAN CATCH
[2019-09-22 11:01] LABS: PH 7 (5-8); SQUAMOUS EPITHELIAL 0-2 /hpf; URINE APPEARANCE Clear; URINE BACTERIA None Seen /hpf; URINE BILIRUBIN Negative (NEGATIVE); URINE BLOOD 1+ (NEGATIVE); URINE COLOR Yellow; URINE GLUCOSE Negative (NEGATIVE); URINE KETONE Trace (NEGATIVE); URINE LEUKOCYTE ESTERASE Negative (NEGATIVE); URINE NITRATE Negative (NEGATIVE); URINE PROTEIN(semi-quant) Negative (NEGATIVE); URINE RBC 0-2 /hpf; URINE UROBILINOGEN Negative (NEGATIVE)
[2019-09-22 13:28] VITALS: BP 132/70; PULSE 99; TEMP 99
--- NOTE | 2019-09-22 14:04 | NUR ---
PT IN BED, REPORTS PAIN ON RIGHT SIDE. PT HAS SCABS ALL OVER BODY, SOME OPEN AND BLEEDING, PT PICKS AT SKIN, MOVES MOUTH IN SPECIFIC WAY, REPORTS USING A WALKER AT HOME, NO OTHER NEEDS AT THIS TIME.
[2019-09-22 16:06] VITALS: BP 127/75; PULSE 95; TEMP 99
--- NOTE | 2019-09-22 16:06 | NUR ---
GAVE PT NORCO FOR PAIN ON R SIDE, EXPLAINED POSSIBLE BENEFITS OF PATIENT WEARING MITTS TO HELP WITH PTS COMPULSIVE SCRATCHING. PT AGREED TO WEAR THE MITTS TO TRY THEM. PT STATES THEY ARE HELPING AND SHE WILL CONTINUE TO WEAR THEM AT THIS TIME. PT SAYS NORCO IS HELPING PAIN COME DOWN AND SHE DOES NOT WANT IV PAIN MEDICAITON AT THIS TIME.
--- NOTE | 2019-09-22 16:52 | NUR ---
EARLY MONODOX ADMINISTRATION PER PHARMACISTKAROL, BARBY.
--- NOTE | 2019-09-22 17:40 | NUR ---
PT STATES PAIN IS MUCH BETTER AFTER DILAUDID ADMINISTRATION. PT RESTING UPON ROOM ENTRY, PREDNISONE GIVEN, PT ON FLUIDS. NO OTHER NEEDS AT THIS TIME
[2019-09-22 18:57] VITALS: BP 131/52; PULSE 90; TEMP 98.9
--- NOTE | 2019-09-22 21:29 | NUR ---
Received report from TATY Rodas. A/O x4. c/o mid/rt rib pain, rate 8/10. PRN pain meds administered as requested by pt. Scheduled meds adminsitered. Tele monitor in place. IV to RFA intact with fluids infusing, dressing CDI. PT continually scratching to numerous scabbs all over body, mitts at bedside. pt states she will put them on before bed. Needs met at this time. Call light within reach.
[2019-09-22 22:55] VITALS: BP 104/56; PULSE 90; TEMP 97.9
[2019-09-23 03:31] VITALS: BP 129/78; PULSE 84; TEMP 98
--- NOTE | 2019-09-23 07:07 | NUR ---
PT IN BED, DENIES NEED FOR PAIN MEDICATION AT THIS TIME.
--- NOTE | 2019-09-23 07:27 | NUR ---
Report given to TATY Rodas.
[2019-09-23 08:13] VITALS: BP 149/85; PULSE 91; TEMP 98.2
[2019-09-23 08:21] LABS: BASO % 0.2 % (0.0-2.0); EOS # 0.1 (0.0-0.7); EOS % 0.9 % (0-4.0); GRAN % 77.7 % (42.2-75.2); HEMATOCRIT 32.4 % (37.0-47.0); HEMOGLOBIN 10.2 g/dl (12.5-16.0); LYMPH # 1.7 (1.2-3.4); LYMPH % 13.4 % (20.0-51.0); MEAN CELL VOLUME 96 fl (80.0-100.0); MEAN CORPUSCULAR HEMOGLOBIN 30 pg (27.0-31.0); MEAN CORPUSCULAR HGB CONC 32 g/dl (33.0-37.0); MEAN PLATELET VOLUME 8.9 fl (7.4-10.4); MONO # 0.9 (0.1-0.6); PLATELET COUNT 405 K/mm3 (130-400); RED BLOOD COUNT 3.37 M/mm3 (4.10-5.30); REDCELL DISTRIBUTION WIDTH-CV 14.6 % (11.5-14.5)
[2019-09-23] MEDS ORDERED: MONODOX100 PO (08:35)
[2019-09-23] MEDS ORDERED: PREDNISONE20 MG PO (08:36)
[2019-09-23] MEDS ORDERED: NORCO 325 MG-51 TAB PO (08:37)
--- NOTE | 2019-09-23 08:50 | NUR ---
PT SCRATCHING AT SCABS. SCABS COVERING PT BODY, SOME OPEN AND BLEEDING. PT REPORTING PAIN 10/31. DILAUDID GIVEN PT THEN REPORTED PAIN FEELING A LOT BETTER. PT ATE 90% OF BREAKFAST, DISCHARGE PAPERWORK BEING PREPARED, PT OVERALL PLEASANT, PT ALERT AND ORIENTED. NO OTHER NEEDS AT THIS TIME.
--- NOTE | 2019-09-23 11:51 | NUR ---
PT ESCORTED OUT TO ER ENTRANCE WITH PT BELONGINGS. DISCHARGE EDUCATION PROVIDED. IV DISCONTINUED, TELE REMOVED, PT ASSISTED IN DRESSING, PT SAID NORCO HELPED SOME BUT NOT WELL DILAUDED. NO OTHER NEEDS AT THIS TIME.
== END 2019-09-23 11:53 | disposition home or self-care (01) ==
LOC: COL.ER 07:11 → MEDICAL 12:01
PROVIDERS: Family Medicine; Physician Assistant; ADMIT Internal Medicine
DX: S22.31XA Fracture of one rib, right side, initial encounter for closed fracture (principal); L03.90 Cellulitis, unspecified; R65.10 Systemic inflammatory response syndrome (SIRS) of non-infectious origin without acute organ dysfunction; W18.30XA Fall on same level, unspecified, initial encounter; Y93.01 Activity, walking, marching and hiking; Y92.008 Other place in unspecified non-institutional (private) residence as the place of occurrence of the external cause; I10 Essential (primary) hypertension; E78.5 Hyperlipidemia, unspecified; G43.909 Migraine, unspecified, not intractable, without status migrainosus; F41.9 Anxiety disorder, unspecified; F32.9 Major depressive disorder, single episode, unspecified; F42.4 Excoriation (skin-picking) disorder; K21.9 Gastro-esophageal reflux disease without esophagitis; Z91.5 Personal history of self-harm; Z86.73 Personal history of transient ischemic attack (TIA), and cerebral infarction without residual deficits; J45.909 Unspecified asthma, uncomplicated; Z86.15 Personal history of latent tuberculosis infection; Z79.899 Other long term (current) drug therapy; Z87.891 Personal history of nicotine dependence; Z88.7 Allergy status to serum and vaccine; Z88.8 Allergy status to other drugs, medicaments and biological substances
CPT/HCPCS: A9284; J1170; J3010; J7030; J7512; Q9967

== ENCOUNTER → 2019-09-28 | Outpatient (CLI) | payer MEDICARE, OTHER ==
[~2019-09-28] MED LIST changes: +MONODOX100 PO; +NORCO 325 MG-101 TAB PO
== END ==
LOC: BHSO 16:01
DX: F06.32 Mood disorder due to known physiological condition with major depressive-like episode (principal)
CPT/HCPCS: G0463

== ENCOUNTER 2019-09-29 11:44 | Inpatient (IN) | payer MEDICARE, OTHER ==
[~2019-09-29] VITALS: Ht 162.6 cm; Wt 59.3 kg
[~2019-09-29 11:44] MED LIST changes: -NORCO 325 MG-101 TAB PO
[2019-09-29 12:44] LABS: BASO # 0.1 (0.0-0.2); BASO % 0.4 % (0.0-2.0); EOS # 0.1 (0.0-0.7); EOS % 0.5 % (0-4.0); GRAN # 18.2 (1.4-6.5); GRAN % 83.5 % (42.2-75.2); HEMATOCRIT 37.9 % (37.0-47.0); LYMPH % 8.9 % (20.0-51.0); MEAN CELL VOLUME 96 fl (80.0-100.0); MEAN CORPUSCULAR HEMOGLOBIN 30 pg (27.0-31.0); MEAN CORPUSCULAR HGB CONC 32 g/dl (33.0-37.0); MEAN PLATELET VOLUME 8.3 fl (7.4-10.4); MONO # 1.2 (0.1-0.6); MONO % 5.4 % (1.7-9.3); PLATELET COUNT 601 K/mm3 (130-400); RED BLOOD COUNT 3.95 M/mm3 (4.10-5.30); REDCELL DISTRIBUTION WIDTH-CV 15.1 % (11.5-14.5)
[2019-09-29 12:54] LABS: ALBUMIN 3.4 gm/dL (3.5-5.0); BILIRUBIN,TOTAL 0.4 mg/dL (0.0-1.0); CREATININE, serum 0.68 (0.52-1.25); POTASSIUM 3.6 mmol/L (3.4-5.0); TOTAL PROTEIN 6.8 gm/dL (6.4-8.2)
[2019-09-29] MEDS ORDERED: NORCO 325 MG-101 TAB PO (16:07)
[2019-09-29] MEDS ORDERED: ATARAX50 MG PO ×2 (16:08→16:09)
--- NOTE | 2019-09-29 20:12 | NUR ---
Pt. arrived to the floor. Pt. is A&OX3, assessment complete. IV to lt. ac patent, IV fluids infusing. Pt. reports pain at a 7 on pain scale, will give pain meds per orders. Pt. has a full body rash that is healing form a reaction to crestor. Pt. denies further needs, call light within reach.
[2019-09-29 20:25] VITALS: BP 165/104; PULSE 92; TEMP 98.3
--- NOTE | 2019-09-29 21:00 | NUR ---
Pt arrived to the floor via wheelchair. Pt was able to ambulate to the bed. Pt has her call light within reach and her bed is in lowest position.
[2019-09-30] VITALS (7 sets, daily range): BP systolic 104–145; BP diastolic 61–87; PULSE 86–106; TEMP 97.9–99.1
--- NOTE | 2019-09-30 01:21 | NUR ---
Pt requested something for pain at this time. She stated that she was at a 7 out of 10 on the pain scale. Pt was given pain medication at this time. She has her call light within reach and her bed is in lowest position.
--- NOTE | 2019-09-30 02:33 | NUR ---
Pt is currently sleeping in bed. Pt has her call light within reach.
--- NOTE | 2019-09-30 06:43 | NUR ---
Pt currently sleeping in bed. Pt has her call light within reach. Pt has ambulated to the restroom once during the night.
[2019-09-30 07:06] LABS: BASO # 0.1 (0.0-0.2); BASO % 0.3 % (0.0-2.0); EOS # 0.1 (0.0-0.7); EOS % 0.4 % (0-4.0); GRAN # 16.6 (1.4-6.5); GRAN % 85.4 % (42.2-75.2); HEMATOCRIT 39.4 % (37.0-47.0); HEMOGLOBIN 12.1 g/dl (12.5-16.0); LYMPH # 1.3 (1.2-3.4); LYMPH % 6.7 % (20.0-51.0); MEAN CELL VOLUME 98 fl (80.0-100.0); MEAN CORPUSCULAR HEMOGLOBIN 30 pg (27.0-31.0); MEAN CORPUSCULAR HGB CONC 31 g/dl (33.0-37.0); MEAN PLATELET VOLUME 8.8 fl (7.4-10.4); MONO # 1.2 (0.1-0.6); MONO % 6.2 % (1.7-9.3); PLATELET COUNT 511 K/mm3 (130-400); RED BLOOD COUNT 4.02 M/mm3 (4.10-5.30); REDCELL DISTRIBUTION WIDTH-CV 15.4 % (11.5-14.5)
[2019-09-30 07:23] LABS: CREATININE, serum 0.52 (0.52-1.25); POTASSIUM 3.4 mmol/L (3.4-5.0)
--- NOTE | 2019-09-30 07:41 | NUR ---
Reported off to TATY Blue. Pt has her call light within reach and her bed is in lowest position.
--- NOTE | 2019-09-30 07:58 | NUR ---
Lying in bed with eyes open. Rates pain 8/10 in abd and describes as an ache all over. Would like pain medication. Small scabs noted all over body. Patient denies any additional needs at this time.
--- NOTE | 2019-09-30 08:07 | NUR ---
Morphine administered as prescribed for pain per patient request.
--- NOTE | 2019-09-30 11:15 | NUR ---
Rates pain in abd 7/10, would like pain medication. Morphine administered as prescribed. Patient lying in bed watching TV. Denies additional needs.
--- NOTE | 2019-09-30 11:35 | NUR ---
First visit from the seaport planning manager. No needs right now.
--- NOTE | 2019-09-30 15:15 | NUR ---
SW met with patient to complete intake. Patient states that she lives at home with her Laurent [phone] who is also her DPOA-HC. Patient states that her adult daughter Ethel [phone] also resides with her, and is also her primary caregiver. Patient states that she utilizes a walker and a wheelchair for short distances, and that she is independent with ADL's. Patient states that her PCP is Dr. Casey. Patient states that she obtains her medications from [facility], and that she is able to afford her medications. Patient provides that she plans to go back to her home upon discharge and does not feel as though she will need any services due to having her daughter as her primary caregiver, but would consider it if it is recommended. Patient states that she does not have any questions or concerns in regards to her discharge. SW will continue to follow.
--- NOTE | 2019-09-30 15:50 | NUR ---
Rating pain in abd 9/10 and requests pain medication. Administer Morphine as prescribed. Patient lying in bed with eyes open. Denies additional needs.
--- NOTE | 2019-09-30 18:25 | NUR ---
Rating pain 6/10 in abd and would like pain medication. Administered Morphine as prescribed. Patient lying in bed with eyes open watching TV. Hopes to get some sleep tonight. Denies any additional needs at this time.
--- NOTE | 2019-09-30 20:00 | NUR ---
Received report from TATY Blue. Pt currently lying in bed with her call light within reach.
--- NOTE | 2019-10-01 | NUR ---
Pt has slept well during the night. Pt requested her night medications at 8pm and was given her medications. Pt has not requested anything for pain at this time. Pt has her call light within reach and her bed is in lowest position.
[2019-10-01 03:47] VITALS: BP 125/66; PULSE 92; TEMP 98.1
[2019-10-01 06:27] LABS: BASO # 0.1 (0.0-0.2); BASO % 0.5 % (0.0-2.0); EOS # 0.8 (0.0-0.7); EOS % 6.2 % (0-4.0); GRAN # 9.5 (1.4-6.5); GRAN % 73.6 % (42.2-75.2); LYMPH # 1.5 (1.2-3.4); LYMPH % 11.8 % (20.0-51.0); MEAN CELL VOLUME 98 fl (80.0-100.0); MEAN CORPUSCULAR HGB CONC 31 g/dl (33.0-37.0); MEAN PLATELET VOLUME 8.9 fl (7.4-10.4); MONO # 0.9 (0.1-0.6); MONO % 7.1 % (1.7-9.3); RED BLOOD COUNT 3.14 M/mm3 (4.10-5.30); REDCELL DISTRIBUTION WIDTH-CV 15.3 % (11.5-14.5)
[2019-10-01 06:39] LABS: CALCIUM 7.7 mg/dL (8.4-10.2); CREATININE, serum 0.49 (0.52-1.25); POTASSIUM 3.4 mmol/L (3.4-5.0)
[2019-10-01 06:48] LABS: HEMATOCRIT 30.7 % (37.0-47.0); HEMOGLOBIN 9.4 g/dl (12.5-16.0); MEAN CORPUSCULAR HEMOGLOBIN 30 pg (27.0-31.0); PLATELET COUNT 345 K/mm3 (130-400)
--- NOTE | 2019-10-01 07:00 | NUR ---
Reported off to TATY Casey. Pt is currently lying in bed. She did request something for pain this morning. Pt was given something for pain at this time along with her morning medications. Pt has her call light within reach and her bed is in lowest position.
[2019-10-01 07:22] VITALS: BP 131/90; PULSE 86; TEMP 98.7
[2019-10-01 14:19] VITALS: BP 130/78; PULSE 78; TEMP 98.4
--- NOTE | 2019-10-01 16:24 | NUR ---
Patient has been doing well today. She is tolerating clear liquids well. No complaints of nauea. Her pain medication has been switched to dilauded and that seems to be working well for her. She still needs encouragement to be more active. She is passing flatus but no bowel movement today. No other changes at this time. Call light within reach.
[2019-10-01 16:35] VITALS: BP 133/65; PULSE 90; TEMP 98.6
--- NOTE | 2019-10-01 20:00 | NUR ---
Report received, assumed care for overnight houseperson. Assessment complete. A&Ox3-drowsy. States she is exhausted and ready for HS meds as well as pain meds. Rating pain 8/10-described as constant ache with stabs to the left side. Dilaudid given per dr order. Denies shortness of breath/nausea. Voiding without difficulty. IV to left AC with LR@100mls/hr. Plan of care discussed for NPO at midnight. Verbalizes understanding. Call light in reach. Will monitor.
[2019-10-01 20:06] VITALS: BP 147/82; PULSE 90; TEMP 98.5
[2019-10-02] VITALS (8 sets, daily range): BP systolic 105–157; BP diastolic 69–93; PULSE 81–99; TEMP 97.9–99.3
--- NOTE | 2019-10-02 01:10 | NUR ---
Notified by PCT patient on floor in bathroom. States she got up to void without her walker and started voiding before she made it to the toilet-slipped in urine inside of bathroom beside toilet. Denies striking her head. States she hit the upper part of her back and left shoulder. No new abrasions noted. Assisted back to bed with 3 assist. Vitals 151/87, pulse 98, temp 98.1 and spO2 98% on room air. station installation supervisor present post fall and Dr. Antoine notified with no new orders received. High fall risk gown, socks, arm band, and signage applied. Risk assessment complete and chaged to high. Bed alarm on/call light in reach. Will monitor.
--- NOTE | 2019-10-02 05:01 | NUR ---
Rested better the last part of the shift. Still with some c/o pain to right shoulder/mid back from fall but denies need for intervention-rating it 3/10 on pain scale-described as constant ache. Denied nausea/shortness of breath. VS remained stable. Has tolerated small amounts of clear liquids. Voiding without difficulty. Call light in reach/bed alarm on. Will monitor.
[2019-10-02 06:34] LABS: BASO # 0.1 (0.0-0.2); BASO % 0.5 % (0.0-2.0); EOS % 9.2 % (0-4.0); GRAN # 7.8 (1.4-6.5); GRAN % 69.8 % (42.2-75.2); LYMPH # 1.4 (1.2-3.4); LYMPH % 12.3 % (20.0-51.0); MEAN CELL VOLUME 97 fl (80.0-100.0); MEAN CORPUSCULAR HGB CONC 31 g/dl (33.0-37.0); MEAN PLATELET VOLUME 9.1 fl (7.4-10.4); MONO # 0.8 (0.1-0.6); MONO % 7.5 % (1.7-9.3); PLATELET COUNT 371 K/mm3 (130-400); RED BLOOD COUNT 3.06 M/mm3 (4.10-5.30); REDCELL DISTRIBUTION WIDTH-CV 15.4 % (11.5-14.5)
[2019-10-02 06:41] LABS: ANION GAP 5 mmol/L (7-16); CALCIUM 8.2 mg/dL (8.4-10.2); CARBON DIOXIDE 21 mmol/L (22-30); CHLORIDE 111 mmol/L (98-107); CREATININE, serum 0.43 (0.52-1.25); GLUCOSE 85 mg/dL (74-106); SODIUM 137 mmol/L (137-145)
[2019-10-02 06:50] LABS: BLOOD UREA NITROGEN < 2 mg/dL (7-17)
[2019-10-02 06:51] LABS: HEMATOCRIT 29.7 % (37.0-47.0); HEMOGLOBIN 9.2 g/dl (12.5-16.0); MEAN CORPUSCULAR HEMOGLOBIN 30 pg (27.0-31.0)
--- NOTE | 2019-10-02 08:37 | NUR ---
Assessment completed, alert/oriented, vital signs stable, reports pain 5/10 this morning/ mostly in her back but also still has some significant rebound tenderness in her abdomen, she is tolerating PO intake and denies any N/V or increased discomfort with clear liquids, heart RRR, lungs CTA, direct of real estate nurse reported that the patient did have a fall last night due an incontinent epsiode on the floor that she then slipped in, patient is now a fall risk and I have set her bed alarm/ placed call light in reach and educated her on calling for assistance to get up, she verbalzied understanding
--- NOTE | 2019-10-02 11:44 | NUR ---
Patient is going down to radiology for a CT scan
--- NOTE | 2019-10-02 20:00 | NUR ---
Report received. Assumed care for acid purification equipment operator. Assessment complete. VS stable. A&Ox3. Rating pain 2/10 to flank and back-described as constant throbbing-denies need for intervention at this time. Denies nausea/shortness of breath. Noted to have generalized scabbing and open areas all over body-diagnosed with skin picking disorder. HS meds given per request. IV to left AC with LR@75mls/hr-infusing without difficulty. Instructed to call when needs to use bathroom. High fall risk signage present as well as gown/socks. Call light in reach/bed alarm on. Will monitor.
--- NOTE | 2019-10-02 21:00 | NUR ---
C/O pain to flanks and back-rating pain 6/10 on pain scale-described as constant ache with sharp jabs. Dilaudid given per dr order. Bed alarm on. Will monitor.
[2019-10-03] VITALS (7 sets, daily range): BP systolic 124–179; BP diastolic 78–102; PULSE 82–96; TEMP 97.7–99.3
--- NOTE | 2019-10-03 01:00 | NUR ---
Resting eyes closed-no s/s of pain or discomfort noted. Bed alarm 0n. Will monitor.
--- NOTE | 2019-10-03 05:20 | NUR ---
Has rested well this shift. Continued to pick at skin until bleeding in certain areas. Ambulated better this shift with stand by assist/walker/gait belt. Received dilaudid x1 for pain with adequate pain control. Denied nausea/shortness of breath. VS remained stable. Call light in reach/bed in low/alarm on. Will monitor.
[2019-10-03 06:47] LABS: BASO % 0.4 % (0.0-2.0); EOS # 1.3 (0.0-0.7); EOS % 12.7 % (0-4.0); GRAN # 6.7 (1.4-6.5); GRAN % 64.7 % (42.2-75.2); LYMPH # 1.3 (1.2-3.4); LYMPH % 12.9 % (20.0-51.0); MEAN CELL VOLUME 98 fl (80.0-100.0); MEAN CORPUSCULAR HGB CONC 31 g/dl (33.0-37.0); MEAN PLATELET VOLUME 9.3 fl (7.4-10.4); MONO # 0.9 (0.1-0.6); MONO % 8.8 % (1.7-9.3); PLATELET COUNT 394 K/mm3 (130-400); RED BLOOD COUNT 3.07 M/mm3 (4.10-5.30); REDCELL DISTRIBUTION WIDTH-CV 15.6 % (11.5-14.5)
[2019-10-03 07:12] LABS: ANION GAP 5 mmol/L (7-16); CALCIUM 8.7 mg/dL (8.4-10.2); CARBON DIOXIDE 25 mmol/L (22-30); CHLORIDE 110 mmol/L (98-107); CREATININE, serum 0.46 (0.52-1.25); GLUCOSE 79 mg/dL (74-106); LIPASE 536 U/L (23-300); POTASSIUM 3.8 mmol/L (3.4-5.0); SODIUM 139 mmol/L (137-145)
[2019-10-03 07:13] LABS: BLOOD UREA NITROGEN < 2 mg/dL (7-17)
[2019-10-03 07:16] LABS: HEMOGLOBIN 9.3 g/dl (12.5-16.0); MEAN CORPUSCULAR HEMOGLOBIN 30 pg (27.0-31.0)
--- NOTE | 2019-10-03 08:23 | NUR ---
Assessment completed, alert/oriented, vital signs stable/ a little HTN this morning but patiient had just been up exercising and is having significant Abd discomfort as well, I will treat pain with meds as ordered and then recheck BP, she has been up to bathroom and is voiding urine well, she is tolerating CL diet well without any N/V, GI has been around and is planning to advance diet today and let her try some solid food, patient agrees to plan of care, we are also going to transition to PO paind meds and I have spoke with hospitalist in [facility] to this and got order for Oxycodone and to ween off IV Dilaudid, patient is getting up with PT at this time
--- NOTE | 2019-10-03 20:00 | NUR ---
Report received, assumed care for shift stacker. Assessment complete. A&Ox3. VS stable. C/O pain to abdomen-lower abdomen and right flank-described as sharp stabbing with constant ache. Oxycodone given per dr order. Denies nausea/shortness of breath. Voiding without difficulty. Denies flatus. Skin is in poor condition grom head to toe-is a chronic skin fruit picker-scabbed areas as well as open bleeding areas cover entire surface. Plan of care discussed for this shift to include pain control/calling for needs/IV fluids. Verbalizes understanding. Call light in reach/bed alarm on. Will monitor.
[2019-10-04 04:34] VITALS: BP 135/75; PULSE 97; TEMP 98.9
[2019-10-04 06:41] LABS: BASO # 0.1 (0.0-0.2); BASO % 0.5 % (0.0-2.0); EOS # 1.3 (0.0-0.7); EOS % 11.7 % (0-4.0); GRAN # 7.2 (1.4-6.5); GRAN % 67.5 % (42.2-75.2); LYMPH # 1.3 (1.2-3.4); LYMPH % 12.6 % (20.0-51.0); MEAN CELL VOLUME 96 fl (80.0-100.0); MEAN CORPUSCULAR HGB CONC 31 g/dl (33.0-37.0); MEAN PLATELET VOLUME 9.1 fl (7.4-10.4); MONO # 0.8 (0.1-0.6); MONO % 7.2 % (1.7-9.3); PLATELET COUNT 443 K/mm3 (130-400); RED BLOOD COUNT 3.04 M/mm3 (4.10-5.30); REDCELL DISTRIBUTION WIDTH-CV 15.6 % (11.5-14.5)
[2019-10-04 06:43] LABS: HEMATOCRIT 29.2 % (37.0-47.0); HEMOGLOBIN 9.1 g/dl (12.5-16.0); MEAN CORPUSCULAR HEMOGLOBIN 30 pg (27.0-31.0)
[2019-10-04 06:47] LABS: CALCIUM 8.5 mg/dL (8.4-10.2); CREATININE, serum 0.66 (0.52-1.25); POTASSIUM 3.5 mmol/L (3.4-5.0)
[2019-10-04 07:11] VITALS: BP 134/92; PULSE 99; TEMP 98.9
--- NOTE | 2019-10-04 07:50 | NUR ---
Patient in bed resting. Alert and oriented x 3. Assessment complete. States pain 8/10 to abdomen, medications given per orders. Patient picking at skin, bleeding from picking. Scabs all over body. IVF infusing per orders. Denies further needs at this time.
[2019-10-04 11:28] VITALS: BP 145/86; PULSE 93; TEMP 98.5
--- NOTE | 2019-10-04 16:37 | NUR ---
Home Stager followed up with patient to review discharge plan. Patient states she still plans to return home at discharge with her and daughter. SW left a message for patient's , Laurent then contacted patient's daughter, Ethel to review discharge plan. Ethel advised that she helps patient with household duties like laundry and changing her bedding. Ethel advised she only assists patient with ADLS when she's sick or injured. Ethel is in agreement with discharge plan. ELISA will continue to follow as needed.
[2019-10-04 16:48] VITALS: BP 152/87; PULSE 95; TEMP 98.8
--- NOTE | 2019-10-04 18:02 | NUR ---
Patient has done well throughout the day, has been up restoom with stand by assist througout the day; steady gait with walker. Has requested pain medications for chronic back pain, medications given per orders. Denies further needs at this time. WIll report off to warehouse shift supervisor.
[2019-10-04 19:50] VITALS: BP 137/87; PULSE 97; TEMP 99.4
--- NOTE | 2019-10-04 19:58 | NUR ---
Received report from TATY Jo. Pt call light is within reach and her bed is in lowest position.
[2019-10-05 00:09] VITALS: BP 148/100; PULSE 105; TEMP 100.4
[2019-10-05 00:25] VITALS: BP 143/86; PULSE 105; TEMP 99.4
--- NOTE | 2019-10-05 00:34 | NUR ---
Pt is currently lying in bed. Pt vitals were taken by the aide and while taking the vitals Pt stated that she was having chest pains. I went in to assess pt , pt vitals were as follows her blood pressure was 143/86 and HR 105, Temp was 99.4 and her RS 18. Her oxygen was at 92% at room air. I asked pt if she was having chest pains. She stated that she was having pain and she had never had this pain before. I contacted VIVIAN Salomon and she came and asssessed the pt. Pt told her that she was hurting in her chest and it was the same pain as earlier. Pt pointed to the area where she was hurting at. Pt stated during her assessment that she usually takes [place] for pain. Pt was given pain medication at 2011 and was informed that she can have this every 6 hours for pain and has PRN medications that she can have. Pt is currently resting in bed. I informed her that I will be checking on her and checking her vitals. I spoke with David Blue PA she stated that she just wanted to see how she does. I will update her of any changes. Pt was ok with getting her [place] whenever she is able to have another dose which will be at 0212. Pt has her call light within reach and her bed is in lowest position and her alarm is on. Pt stated she was ok with getting the [place] for pain whenever she can have it.
--- NOTE | 2019-10-05 00:47 | NUR ---
Pt ambulated to the restroom. Pt stated that her pain is getting a little better. She said that the pain was still there and that she was ok with getting the [place] for pain whenever she is able to have it. She is currently lying in bed and has her call light within reach and her bed is in lowest position and alarm is on.
--- NOTE | 2019-10-05 01:16 | NUR ---
Pt currently sleeping in bed. Pt blood glucose level was checked her level was at 128. Pt has her call light within reach and her bed is in lowest position and alarm is on .
[2019-10-05 02:21] VITALS: BP 126/68; PULSE 75; TEMP 98.8
--- NOTE | 2019-10-05 02:34 | NUR ---
Pt currently sleeping in bed. Pt vitals were all within normal limits. Pt has her call light wtihin reach and her bed is in lowest position.
[2019-10-05 03:52] VITALS: BP 127/68; PULSE 93; TEMP 98.1
[2019-10-05 06:45] LABS: CALCIUM 8.7 mg/dL (8.4-10.2); CREATININE, serum 0.54 (0.52-1.25); MAGNESIUM 2.1 mg/dL (1.6-2.3); POTASSIUM 3.6 mmol/L (3.4-5.0)
[2019-10-05 06:46] LABS: BASO # 0.1 (0.0-0.2); BASO % 0.4 % (0.0-2.0); EOS # 1.5 (0.0-0.7); EOS % 13.3 % (0-4.0); GRAN # 7.3 (1.4-6.5); GRAN % 64.5 % (42.2-75.2); LYMPH # 1.6 (1.2-3.4); LYMPH % 13.8 % (20.0-51.0); MEAN CELL VOLUME 95 fl (80.0-100.0); MEAN CORPUSCULAR HGB CONC 31 g/dl (33.0-37.0); MEAN PLATELET VOLUME 9.2 fl (7.4-10.4); MONO # 0.9 (0.1-0.6); MONO % 7.5 % (1.7-9.3); PLATELET COUNT 455 K/mm3 (130-400); RED BLOOD COUNT 3.19 M/mm3 (4.10-5.30); REDCELL DISTRIBUTION WIDTH-CV 15.8 % (11.5-14.5)
[2019-10-05 06:47] LABS: HEMATOCRIT 30.4 % (37.0-47.0); HEMOGLOBIN 9.4 g/dl (12.5-16.0); MEAN CORPUSCULAR HEMOGLOBIN 29 pg (27.0-31.0)
[2019-10-05 07:42] VITALS: BP 125/75; PULSE 98; TEMP 98.3
--- NOTE | 2019-10-05 08:21 | NUR ---
Patient sitting up in bed eating breakfast. Alert and orineted x 3. Assessment complete. Denies pain at this time. Patient continues picking at skin causing open areas to bleed. No further needs at this time. WIll continue to monitor.
[2019-10-05] MEDS ORDERED: NORCO 325 MG-101 TAB PO (09:17)
--- NOTE | 2019-10-05 10:03 | NUR ---
Patient up to restroom with stand by assist. no further needs at this time.
--- NOTE | 2019-10-05 10:52 | NUR ---
Discharge education provided to patient. Educated on follow up appointments and when to call providers. Returned home meds to patient. INT discontinued, catheter tip intact. Denies pain at this time. Denies further needs at this time. All questions answered. Assisted patient to dress. Patient out by wheelchair with surgical staff.
== END 2019-10-05 10:50 | disposition home or self-care (01) | DRG 440 ==
LOC: COL.ER 11:44 → SURG 16:11
PROVIDERS: Hospitalist; Nurse Practitioner Primary Care; Physician Assistant; ADMIT Internal Medicine
DX: K85.80 Other acute pancreatitis without necrosis or infection (principal); K86.1 Other chronic pancreatitis; D64.9 Anemia, unspecified; E16.2 Hypoglycemia, unspecified; E87.6 Hypokalemia; D69.6 Thrombocytopenia, unspecified; I10 Essential (primary) hypertension; E78.5 Hyperlipidemia, unspecified; G43.709 Chronic migraine without aura, not intractable, without status migrainosus; F41.9 Anxiety disorder, unspecified; F32.9 Major depressive disorder, single episode, unspecified; K21.9 Gastro-esophageal reflux disease without esophagitis; F42.4 Excoriation (skin-picking) disorder; J45.909 Unspecified asthma, uncomplicated; Z87.891 Personal history of nicotine dependence
CPT/HCPCS: 99222-AI; 99231-AI; 99232-AI; 99233-AI; J1170; J1650; J2270; J2405; J7030; J7120; Q9967

== ENCOUNTER → 2019-10-11 | Outpatient (CLI) | payer MEDICARE, OTHER ==
[~2019-10-11] MED LIST changes: +NORCO 325 MG-101 TAB PO
[2019-10-11 12:04] LABS: SYNOVIAL FLUID APPEARANCE CLOUDY; SYNOVIAL FLUID COLOR RED
[2019-10-11 12:05] LABS: SYNOVIAL FLUID WBC 60660 /mm3 (200-600)
[2019-10-11 12:06] LABS: SYNOVIAL FL. MONONUCLEAR 7.3 % (0-75); SYNOVIAL FLUID RBC 22000 /mm3 (0-0)
== END ==
LOC: COL.RAD 09:30
PROVIDERS: Orthopaedic Surgery
DX: M25.552 Pain in left hip (principal); Z98.890 Other specified postprocedural states; Z96.642 Presence of left artificial hip joint

== ENCOUNTER → 2019-10-15 | Outpatient (CLI) | payer MEDICARE, OTHER ==
[2019-10-15 11:32] LABS: COLLECTION METHOD CLEAN CATCH
[2019-10-15 11:38] LABS: MUCOUS Present /lpf; PH 6 (5-8); SQUAMOUS EPITHELIAL 0-2 /hpf; URINE APPEARANCE Hazy; URINE BACTERIA None Seen /hpf; URINE BILIRUBIN Negative (NEGATIVE); URINE BLOOD Negative (NEGATIVE); URINE COLOR Amber; URINE GLUCOSE Negative (NEGATIVE); URINE KETONE Negative (NEGATIVE); URINE LEUKOCYTE ESTERASE Negative (NEGATIVE); URINE NITRATE Negative (NEGATIVE); URINE PROTEIN(semi-quant) 1+ (NEGATIVE); URINE RBC 0-2 /hpf; URINE UROBILINOGEN >=4.0 mg/dL (NEGATIVE)
== END ==
LOC: COL.LAB 09:43
PROVIDERS: Orthopaedic Surgery
DX: Z01.812 Encounter for preprocedural laboratory examination (principal); Z79.01 Long term (current) use of anticoagulants

== ENCOUNTER → 2019-10-29 | Outpatient (CLI) | payer MEDICARE, OTHER ==
[2019-10-29 14:37] LABS: COLLECTION METHOD CLEAN CATCH
[2019-10-29 14:49] LABS: MUCOUS Present /lpf; PH 6 (5-8); SQUAMOUS EPITHELIAL 0-2 /hpf; URINE APPEARANCE Clear; URINE BACTERIA None Seen /hpf; URINE BILIRUBIN Negative (NEGATIVE); URINE BLOOD 1+ (NEGATIVE); URINE COLOR Yellow; URINE GLUCOSE Negative (NEGATIVE); URINE KETONE Negative (NEGATIVE); URINE LEUKOCYTE ESTERASE Negative (NEGATIVE); URINE NITRATE Negative (NEGATIVE); URINE PROTEIN(semi-quant) Negative (NEGATIVE); URINE RBC 0-2 /hpf; URINE UROBILINOGEN Negative (NEGATIVE)
== END ==
LOC: ZLAB.STJ 13:21
PROVIDERS: Family Medicine
DX: R82.90 Unspecified abnormal findings in urine (principal)

== ENCOUNTER → 2019-11-05 | Outpatient (CLI) | payer MEDICARE, OTHER ==
[2019-11-05 19:08] LABS: BASO # 0.1 (0.0-0.2); BASO % 0.7 % (0.0-2.0); EOS # 0.1 (0.0-0.7); EOS % 0.6 % (0-4.0); GRAN # 14.6 (1.4-6.5); GRAN % 89.7 % (42.2-75.2); HEMOGLOBIN 10.8 g/dl (12.5-16.0); LYMPH # 1.1 (1.2-3.4); LYMPH % 6.7 % (20.0-51.0); MEAN CELL VOLUME 96 fl (80.0-100.0); MEAN CORPUSCULAR HEMOGLOBIN 29 pg (27.0-31.0); MEAN CORPUSCULAR HGB CONC 30 g/dl (33.0-37.0); MEAN PLATELET VOLUME 9.1 fl (7.4-10.4); MONO # 0.3 (0.1-0.6); MONO % 1.7 % (1.7-9.3); PLATELET COUNT 568 K/mm3 (130-400); RED BLOOD COUNT 3.78 M/mm3 (4.10-5.30); REDCELL DISTRIBUTION WIDTH-CV 15.8 % (11.5-14.5)
[2019-11-05 19:11] LABS: HEMATOCRIT 36.2 % (37.0-47.0)
[2019-11-05 19:19] LABS: ALBUMIN 3.7 gm/dL (3.5-5.0); BILIRUBIN,TOTAL 0.3 mg/dL (0.0-1.0); C-REACTIVE PROTEIN 0.7 mg/dL (0.0-0.9); CALCIUM 9.6 mg/dL (8.4-10.2); CREATININE, serum 0.55 (0.52-1.25); POTASSIUM 4.4 mmol/L (3.4-5.0); TOTAL PROTEIN 6.8 gm/dL (6.4-8.2)
[2019-11-05 19:33] LABS: ERYTHROCYTE SEDIMENTATION RATE 13 mm/hr (0-30)
== END ==
LOC: ZCOL.LAB 18:38
PROVIDERS: Family Medicine
DX: J84.10 Pulmonary fibrosis, unspecified (principal); T84.52XD Infection and inflammatory reaction due to internal left hip prosthesis, subsequent encounter; Z79.2 Long term (current) use of antibiotics

== ENCOUNTER → 2019-11-18 | Outpatient (CLI) | payer MEDICARE, OTHER ==
[2019-11-18 14:04] LABS: BASO # 0.1 (0.0-0.2); EOS # 0.5 (0.0-0.7); EOS % 5.6 % (0-4.0); GRAN # 4.3 (1.4-6.5); GRAN % 52.6 % (42.2-75.2); HEMOGLOBIN 10.9 g/dl (12.5-16.0); LYMPH # 2.6 (1.2-3.4); LYMPH % 31.2 % (20.0-51.0); MEAN CELL VOLUME 97 fl (80.0-100.0); MEAN CORPUSCULAR HEMOGLOBIN 29 pg (27.0-31.0); MEAN CORPUSCULAR HGB CONC 30 g/dl (33.0-37.0); MEAN PLATELET VOLUME 9.5 fl (7.4-10.4); MONO # 0.7 (0.1-0.6); MONO % 9.1 % (1.7-9.3); PLATELET COUNT 362 K/mm3 (130-400); RED BLOOD COUNT 3.79 M/mm3 (4.10-5.30); REDCELL DISTRIBUTION WIDTH-CV 16.2 % (11.5-14.5)
[2019-11-18 14:06] LABS: HEMATOCRIT 36.6 % (37.0-47.0)
[2019-11-18 14:14] LABS: ALBUMIN 3.3 gm/dL (3.5-5.0); BILIRUBIN,TOTAL 0.1 mg/dL (0.0-1.0); C-REACTIVE PROTEIN 0.8 mg/dL (0.0-0.9); CALCIUM 9.2 mg/dL (8.4-10.2); CREATININE, serum 0.68 (0.52-1.25); POTASSIUM 4.1 mmol/L (3.4-5.0)
[2019-11-18 14:28] LABS: ERYTHROCYTE SEDIMENTATION RATE 8 mm/hr (0-30)
== END ==
LOC: ZLAB.STJ 12:01
PROVIDERS: Internal Medicine Infectious Disease
DX: Z01.89 Encounter for other specified special examinations (principal)

== ENCOUNTER → 2019-11-26 | Outpatient (CLI) | payer MEDICARE, OTHER ==
[2019-11-26 18:30] LABS: BASO # 0.1 (0.0-0.2); BASO % 1.1 % (0.0-2.0); EOS # 0.6 (0.0-0.7); EOS % 8.5 % (0-4.0); GRAN # 3.6 (1.4-6.5); GRAN % 54.4 % (42.2-75.2); HEMATOCRIT 38.5 % (37.0-47.0); HEMOGLOBIN 11.4 g/dl (12.5-16.0); LYMPH # 1.8 (1.2-3.4); LYMPH % 27.6 % (20.0-51.0); MEAN CELL VOLUME 97 fl (80.0-100.0); MEAN CORPUSCULAR HEMOGLOBIN 29 pg (27.0-31.0); MEAN CORPUSCULAR HGB CONC 30 g/dl (33.0-37.0); MONO # 0.5 (0.1-0.6); MONO % 7.6 % (1.7-9.3); PLATELET COUNT 304 K/mm3 (130-400); RED BLOOD COUNT 3.97 M/mm3 (4.10-5.30); REDCELL DISTRIBUTION WIDTH-CV 16.1 % (11.5-14.5)
[2019-11-26 18:58] LABS: ERYTHROCYTE SEDIMENTATION RATE 14 mm/hr (0-30)
[2019-11-26 20:38] LABS: ALBUMIN 3.8 gm/dL (3.5-5.0); BILIRUBIN,TOTAL 0.2 mg/dL (0.0-1.0); C-REACTIVE PROTEIN 1.4 mg/dL (0.0-0.9); CALCIUM 9.2 mg/dL (8.4-10.2); CREATININE, serum 0.59 (0.52-1.25); POTASSIUM 5.7 mmol/L (3.4-5.0); TOTAL PROTEIN 6.4 gm/dL (6.4-8.2)
== END ==
LOC: ZLAB.STJ 16:54
PROVIDERS: Internal Medicine Infectious Disease
DX: I10 Essential (primary) hypertension (principal); T84.52XA Infection and inflammatory reaction due to internal left hip prosthesis, initial encounter

== ENCOUNTER → 2019-12-01 | Outpatient (CLI) | payer MEDICARE, OTHER | LOC: BHSO 14:00 | DX: F06.32 Mood disorder due to known physiological condition with major depressive-like episode (principal) ==

== ENCOUNTER → 2019-12-02 | Outpatient (CLI) | payer MEDICARE, OTHER ==
[2019-12-02 20:39] LABS: BASO # 0.1 (0.0-0.2); BASO % 0.9 % (0.0-2.0); EOS # 0.6 (0.0-0.7); EOS % 6.4 % (0-4.0); GRAN % 65.1 % (42.2-75.2); HEMATOCRIT 40.7 % (37.0-47.0); HEMOGLOBIN 12.4 g/dl (12.5-16.0); LYMPH % 21.2 % (20.0-51.0); MEAN CELL VOLUME 95 fl (80.0-100.0); MEAN CORPUSCULAR HEMOGLOBIN 29 pg (27.0-31.0); MEAN CORPUSCULAR HGB CONC 31 g/dl (33.0-37.0); MEAN PLATELET VOLUME 9.9 fl (7.4-10.4); MONO # 0.6 (0.1-0.6); PLATELET COUNT 343 K/mm3 (130-400); RED BLOOD COUNT 4.29 M/mm3 (4.10-5.30); REDCELL DISTRIBUTION WIDTH-CV 15.7 % (11.5-14.5)
[2019-12-02 20:48] LABS: BILIRUBIN,TOTAL 0.3 mg/dL (0.0-1.0); C-REACTIVE PROTEIN 2.9 mg/dL (0.0-0.9); CALCIUM 9.5 mg/dL (8.4-10.2); CREATININE, serum 0.74 (0.52-1.25); POTASSIUM 3.9 mmol/L (3.4-5.0); TOTAL PROTEIN 7.4 gm/dL (6.4-8.2)
[2019-12-02 20:58] LABS: ERYTHROCYTE SEDIMENTATION RATE 16 mm/hr (0-30)
== END ==
LOC: ZCOL.LAB 19:47
PROVIDERS: Internal Medicine Infectious Disease
DX: I10 Essential (primary) hypertension (principal); R68.89 Other general symptoms and signs; R70.0 Elevated erythrocyte sedimentation rate; R79.89 Other specified abnormal findings of blood chemistry; R79.82 Elevated C-reactive protein (CRP)

== ENCOUNTER 2020-02-06 14:30 | Inpatient (IN) | payer MEDICARE, OTHER ==
[~2020-02-06] VITALS: Ht 162.6 cm; Wt 59.7 kg
[2020-02-06 15:00] LABS: BASO # 0.1 (0.0-0.2); BASO % 0.6 % (0.0-2.0); EOS # 0.3 (0.0-0.7); EOS % 1.9 % (0-4.0); GRAN # 11.5 (1.4-6.5); GRAN % 81.1 % (42.2-75.2); HEMATOCRIT 42.5 % (37.0-47.0); HEMOGLOBIN 13.5 g/dl (12.5-16.0); LYMPH # 1.5 (1.2-3.4); LYMPH % 10.5 % (20.0-51.0); MEAN CELL VOLUME 95 fl (80.0-100.0); MEAN CORPUSCULAR HEMOGLOBIN 30 pg (27.0-31.0); MEAN CORPUSCULAR HGB CONC 32 g/dl (33.0-37.0); MEAN PLATELET VOLUME 9.3 fl (7.4-10.4); MONO # 0.8 (0.1-0.6); MONO % 5.5 % (1.7-9.3); PLATELET COUNT 370 K/mm3 (130-400); RED BLOOD COUNT 4.47 M/mm3 (4.10-5.30); REDCELL DISTRIBUTION WIDTH-CV 14.9 % (11.5-14.5)
[2020-02-06 15:05] LABS: INR 1.1 (0.8-3.0); PROTHROMBIN TIME 12.1 SECONDS (9.7-12.8)
[2020-02-06 15:50] LABS: ALBUMIN 3.9 gm/dL (3.5-5.0); BILIRUBIN,TOTAL 0.5 mg/dL (0.0-1.0); C-REACTIVE PROTEIN 1.7 mg/dL (0.0-0.9); CALCIUM 9.2 mg/dL (8.4-10.2); CREATININE, serum 0.73 (0.52-1.25); POTASSIUM 3.9 mmol/L (3.4-5.0)
[2020-02-06] MEDS ORDERED: DOXYCYCLINE 10100 MG PO (16:11)
[2020-02-06] MEDS ORDERED: ZYRTEC 10MG10 MG PO (16:12)
[2020-02-06] MEDS ORDERED: CENTANY AT2% TP (16:13)
[2020-02-06] MEDS ORDERED: TRIAMCINOLONE A15 G3 TP (16:14)
[2020-02-06] MEDS ORDERED: CALTRATE-600 W600 MG PO (16:19)
[2020-02-06] MEDS ORDERED: COZAAR 50MG50 MG/TAB PO (16:19)
[2020-02-06 17:37] VITALS: BP 171/91; PULSE 78; TEMP 99
--- NOTE | 2020-02-06 18:40 | NUR ---
PATIENT SETTELED INTO ROOM. 5 PAGE COMPLETE. MED REC AND ALLERGIES REVIEWED. PRN PAIN MEDICATION GIVEN FOR ABDOMINAL PAIN AND IV APRESOLINE GIVEN FOR SBP >170. WILL REPORT OFF TO ONCOMING NURSE.
[2020-02-06 19:56] VITALS: BP 159/89; PULSE 89; TEMP 98.8
--- NOTE | 2020-02-06 20:00 | NUR ---
Assessment complete. Patient complains of pain 7/10 and 0.25 mg of dilaudid is administered. There are visible scabs all over patient's body, none of which are actively bleeding. Patient states she is itchy constantly and scratches her skin, resulting in generalized scabbing. Fluids infusing into left forearm IV. Will continue to monitor.
--- NOTE | 2020-02-06 20:07 | NUR ---
Assessment complete. Patient has no complaints of pain. Peg tube is draining yellow/green drainage and redness is visible beneath peg tube; this is not a recent change and dressing is changed. Patient is able to self suction her trach. She is tolerating breathing on RA well. Bilateral lower extremity 2+ pitting edema is present. Patient requests some pills to be crushed in pudding and she tolerates this well. Will continue to monitor.
[2020-02-06 23:49] VITALS: BP 141/79; PULSE 94; TEMP 99.5
[2020-02-07 04:03] VITALS: BP 146/87; PULSE 95; TEMP 99.1
[2020-02-07 06:48] LABS: BASO # 0.1 (0.0-0.2); BASO % 0.7 % (0.0-2.0); EOS # 0.4 (0.0-0.7); GRAN # 8.6 (1.4-6.5); GRAN % 72.7 % (42.2-75.2); LYMPH # 1.8 (1.2-3.4); MEAN CELL VOLUME 96 fl (80.0-100.0); MEAN CORPUSCULAR HGB CONC 32 g/dl (33.0-37.0); MEAN PLATELET VOLUME 9.5 fl (7.4-10.4); MONO % 8.2 % (1.7-9.3); PLATELET COUNT 329 K/mm3 (130-400); RED BLOOD COUNT 3.79 M/mm3 (4.10-5.30); REDCELL DISTRIBUTION WIDTH-CV 14.9 % (11.5-14.5)
[2020-02-07 06:59] LABS: HEMATOCRIT 36.2 % (37.0-47.0); HEMOGLOBIN 11.5 g/dl (12.5-16.0); MEAN CORPUSCULAR HEMOGLOBIN 30 pg (27.0-31.0)
[2020-02-07 07:03] LABS: ALBUMIN 2.8 gm/dL (3.5-5.0); BILIRUBIN,TOTAL 0.5 mg/dL (0.0-1.0); CALCIUM 8.1 mg/dL (8.4-10.2); CREATININE, serum 0.61 (0.52-1.25); POTASSIUM 3.8 mmol/L (3.4-5.0); TOTAL PROTEIN 5.4 gm/dL (6.4-8.2)
--- NOTE | 2020-02-07 07:32 | NUR ---
PT REPORT RCVD FROM TATY LIU. PT IS RESTING IN BED AT THIS TIME. DECLINES NEEDS. PT IS NPO AT THIS TIME. CALL LIGHT WITHIN REACH, NO FURTHER CONCERNS.
[2020-02-07 08:43] VITALS: BP 142/104; PULSE 98
[2020-02-07 12:24] VITALS: BP 146/90; PULSE 90; TEMP 98.4
--- NOTE | 2020-02-07 16:12 | NUR ---
SW met with the patient to discuss discharge plan. The patient lives in [place] with her , Laurent (ph#[phone]), and daughter. She states that she has two walkers and a wheelchair. She states that back in December she broke her clavicle. She states that since then, she has sort of been bed bound. She states that she is still able to get up from the bed and transfer herself into the wheelchair to go to the restroom and bathe herself. She states that she does not have any home health services. The patient's PCP is Dr. Gissell Meza and she [facility] her [facility]. The patient's DPOA-HC is in EMR and it designates her . The patient states that she is without a hip right now too, due to it recently being infected. SW discussed post-acute rehab upon discharge. The patient states that she went to [facility] hospital stay and did not mind it there. She states that she would be interested in post-acute rehab upon discharge and chose 1) [facility] 2) [facility]. SW contacted and faxed a referral to both facilities. SW awaiting their screens. SW contacted and reviewed the above information with the patient's , Laurent. Laurent is also agreeable to post-acute rehab and was supportive of the patient's preferences. SW to continue to follow.
[2020-02-07 16:33] VITALS: BP 156/93; PULSE 87; TEMP 98.4
--- NOTE | 2020-02-07 18:44 | NUR ---
PT HAS REMAINED IN SIGNIFICANT PAIN FROM THE PANCREATITIS. SHE HAS NEEDED DILAUDID Q3-4H. DR. GERMAIN CONSULTED, AND STATED THAT HE DID NOT WANT TO DO A CHOLEYCYSTECTOMY UNTIL AFTER THE PANCREATITIS HAS HEALED MORE. PT IS NOW ON CLEAR LIQUIDS, AND HAS TOLERATED QUITE WELL. WILL REPORT TO PHARMACEUTICAL REPRESENTATIVE RN.
[2020-02-07 20:00] VITALS: BP 113/66; PULSE 84; TEMP 98.7
--- NOTE | 2020-02-07 20:40 | NUR ---
Up to restroom and returned to bed. Assessment complete. Lungs clear. Heart sounds normal. Bowels active x4. Pulses present throughout. No edema noted. IV left forearm without complications. Reports 7/10 pain. Provided with PRN Dilaudid provided. Patient had generalized abrasions/sores. Patient educated to not pick at open sores. Denies other needs. Call light in reach.
[2020-02-08] VITALS (7 sets, daily range): BP systolic 111–150; BP diastolic 73–97; PULSE 77–109; TEMP 98.4–99.1
--- NOTE | 2020-02-08 00:54 | NUR ---
Resting in bed. Denies needs. Call light in reach.
--- NOTE | 2020-02-08 05:50 | NUR ---
Patient required x1 dose of dilaudid for pain control during night. Otherwise uneventful night. Resting in bed this AM. Call janiya mcnulty.
[2020-02-08 06:40] LABS: BASO # 0.1 (0.0-0.2); BASO % 0.9 % (0.0-2.0); EOS # 0.6 (0.0-0.7); EOS % 7.8 % (0-4.0); GRAN # 5.2 (1.4-6.5); GRAN % 64.1 % (42.2-75.2); HEMOGLOBIN 10.4 g/dl (12.5-16.0); LYMPH # 1.5 (1.2-3.4); LYMPH % 17.9 % (20.0-51.0); MEAN CELL VOLUME 95 fl (80.0-100.0); MEAN CORPUSCULAR HEMOGLOBIN 30 pg (27.0-31.0); MEAN CORPUSCULAR HGB CONC 32 g/dl (33.0-37.0); MEAN PLATELET VOLUME 9.8 fl (7.4-10.4); MONO # 0.7 (0.1-0.6); MONO % 8.7 % (1.7-9.3); PLATELET COUNT 254 K/mm3 (130-400); RED BLOOD COUNT 3.43 M/mm3 (4.10-5.30); REDCELL DISTRIBUTION WIDTH-CV 14.8 % (11.5-14.5)
[2020-02-08 06:51] LABS: HEMATOCRIT 32.6 % (37.0-47.0)
[2020-02-08 06:55] LABS: ALBUMIN 2.7 gm/dL (3.5-5.0); BILIRUBIN,TOTAL 0.4 mg/dL (0.0-1.0); CALCIUM 8.1 mg/dL (8.4-10.2); CREATININE, serum 0.57 (0.52-1.25); POTASSIUM 3.7 mmol/L (3.4-5.0); TOTAL PROTEIN 5.1 gm/dL (6.4-8.2)
--- NOTE | 2020-02-08 07:10 | NUR ---
Report given to TATY De La Garza
--- NOTE | 2020-02-08 11:58 | NUR ---
PT IS NOT SHOWING ANY SIGNS OF PAIN AT THIS TIME, RESTING COMFORTABLY IN BED. AFTER THE DOCTOR TALKED WITH UPGRADED PT'S DIET TO A FULL LIQUID DIET FOR LUNCH, AND WILL ADVANCE TOLERATED. ALSO DISCUSSED PO PAIN MANAGEMENT TO LAST LONGER THAN THE DILAUDID DOES. NO FURTHER CONCERNS AT THIS TIME. CALL LIGHT WITHIN REACH.
--- NOTE | 2020-02-08 14:09 | NUR ---
Cloth Measurer Machine spoke with Alfred at [facility] who advised they are able to accept. SW then faxed clinical updates and notified Niko at [facility] that first preference accepted. ELISA also collaborated with VIVIAN Hoskins about COVID testing.
--- NOTE | 2020-02-08 14:28 | NUR ---
After report this morning patient was in bed resting comfortably, denies c/o pain or discomfort. At 0945 patient complained of pain in her abdomen. Pain was a 7/10. Dilaudid administered at approximately 1000. Diet upgraded to a full liquid. No complaints, no n/v/d. Patient has been afebrile, vss. No further concerns will continue to monitor. Call light within reach.
--- NOTE | 2020-02-08 18:32 | NUR ---
Patient was swithced to LR at 75 ml/hr. Dilaudid d/c, roxycodone started PO q8hr PRN. Patient will be getting a cholecystectomy in AM, NPO at midnight. C/O pain 7/10 given roxycodone at 1606, pain went down to a 4/10. Patient currently resting comfortably. Call light within reach.
--- NOTE | 2020-02-08 19:09 | NUR ---
Report given to TATY Lord
--- NOTE | 2020-02-08 19:41 | NUR ---
Up to restroom and returned to bed. Assessment complete. Lungs clear. Heart sounds normal. Bowels active x4. Pulses present throughout. No edema noted. IV left hand infusing without complications. Denies pain at this time. Denies other needs. Call light in reach.
[2020-02-09] VITALS (12 sets, daily range): BP systolic 95–159; BP diastolic 61–91; PULSE 68–103; TEMP 98.1–99
--- NOTE | 2020-02-09 00:28 | NUR ---
Resting in bed. Denies needs. Call light in reach.
--- NOTE | 2020-02-09 02:07 | NUR ---
Resting in bed asleep. Call light in reach.
--- NOTE | 2020-02-09 04:03 | NUR ---
Resting in bed. Call light in reach.
--- NOTE | 2020-02-09 06:09 | NUR ---
Patient had uneventful night. Resting in bed this AM. Call light in reach.
[2020-02-09 06:58] LABS: BASO # 0.1 (0.0-0.2); BASO % 0.7 % (0.0-2.0); EOS # 0.7 (0.0-0.7); EOS % 10.4 % (0-4.0); GRAN # 3.8 (1.4-6.5); GRAN % 56.8 % (42.2-75.2); HEMOGLOBIN 10.1 g/dl (12.5-16.0); LYMPH # 1.5 (1.2-3.4); MEAN CELL VOLUME 95 fl (80.0-100.0); MEAN CORPUSCULAR HEMOGLOBIN 30 pg (27.0-31.0); MEAN CORPUSCULAR HGB CONC 32 g/dl (33.0-37.0); MEAN PLATELET VOLUME 9.6 fl (7.4-10.4); MONO # 0.7 (0.1-0.6); MONO % 9.7 % (1.7-9.3); PLATELET COUNT 283 K/mm3 (130-400); RED BLOOD COUNT 3.33 M/mm3 (4.10-5.30); REDCELL DISTRIBUTION WIDTH-CV 14.7 % (11.5-14.5)
[2020-02-09 07:03] LABS: HEMATOCRIT 31.5 % (37.0-47.0)
--- NOTE | 2020-02-09 07:08 | NUR ---
Report given to TATY Casey
[2020-02-09 07:09] LABS: ALBUMIN 2.8 gm/dL (3.5-5.0); BILIRUBIN,TOTAL 0.3 mg/dL (0.0-1.0); CALCIUM 8.3 mg/dL (8.4-10.2); CREATININE, serum 0.67 (0.52-1.25); POTASSIUM 3.6 mmol/L (3.4-5.0); TOTAL PROTEIN 5.2 gm/dL (6.4-8.2)
[2020-02-09 07:59] LABS: IRON,SERUM 29 ug/dL (35-150)
[2020-02-09 08:08] LABS: TOTAL IRON BINDING CAPACITY 198 ug/dL (265-497)
--- NOTE | 2020-02-09 11:00 | NUR ---
Patient is getting cleaned up for surgery. She has already brushed her teeth. Patients pain is well controlled with dilauded. Denies nausea. Patient needs several reminders to not pick at her skin. She has open sores to her arms, stomach, legs and back. No other changes at this time. Call light within reach.
--- NOTE | 2020-02-09 11:05 | NUR ---
First visit from the manager of organizational development. No needs right now.
--- NOTE | 2020-02-09 12:05 | NUR ---
Patient is off the floor for surgery. Consent signed and on the chart.
--- NOTE | 2020-02-09 14:57 | NUR ---
Police Academy Instructor spoke with patient's , Laurent who feels maybe patient could be discharged home instead of going to post acute rehab. SW advised that [facility] is able to accept if patient would like post acute rehab. SW will continue to follow.
--- NOTE | 2020-02-09 18:30 | NUR ---
Patient has been doing well since getting back from surgery. Roxicodone given once for pain since getting back. Denies nausea. She is tolerating low fat diet well. No other changes at this time. Call light within reach.
--- NOTE | 2020-02-09 20:40 | NUR ---
Resting in bed. Assessment complete. Lungs clear. Heart sounds normal. Bowels active x4. Pulses present throughout. No edema noted. IV left forearm without complications. Reports 7 ABD pain. Oxycodone not due. Given PRN dilaudid for pain control. Patient has generalized abrasions/sores from picking skin. x3 lap sites on ABD CDI. Denies on needs at this time. Call light in reach.
--- NOTE | 2020-02-09 23:57 | NUR ---
Resting in bed. Reports mild ABD pain. Denies need for medications. Denies needs at this time. Call light in reach.
--- NOTE | 2020-02-10 02:21 | NUR ---
Up to restroom and returned to bed. Call light in reach.
[2020-02-10 04:19] VITALS: BP 114/59; PULSE 105; TEMP 98.9
--- NOTE | 2020-02-10 04:22 | NUR ---
Placed on 1 liter of oxygen due to saturations of 87-89% while sleeping. When awake 93% on room air. Will monitor.
--- NOTE | 2020-02-10 05:52 | NUR ---
Patient rated pain 7/10 in ABD. Provided with PRN oxycodone.
--- NOTE | 2020-02-10 06:00 | NUR ---
Patient required x1 dose of dilaudid and x1 dose of oxycodone for pain control throughout night. Otherwise uneventful night. Resting in bed this AM. Call light in reach.
--- NOTE | 2020-02-10 07:01 | NUR ---
Report given to TATY Valdes
[2020-02-10 07:22] LABS: HEMOGLOBIN 10.4 g/dl (12.5-16.0); MEAN CELL VOLUME 95 fl (80.0-100.0); MEAN CORPUSCULAR HEMOGLOBIN 31 pg (27.0-31.0); MEAN CORPUSCULAR HGB CONC 33 g/dl (33.0-37.0); MEAN PLATELET VOLUME 9.4 fl (7.4-10.4); PLATELET COUNT 382 K/mm3 (130-400); RED BLOOD COUNT 3.36 M/mm3 (4.10-5.30); REDCELL DISTRIBUTION WIDTH-CV 14.8 % (11.5-14.5)
[2020-02-10 07:37] LABS: BILIRUBIN,TOTAL 0.2 mg/dL (0.0-1.0); CALCIUM 8.5 mg/dL (8.4-10.2); CREATININE, serum 0.87 (0.52-1.25); POTASSIUM 3.3 mmol/L (3.4-5.0); TOTAL PROTEIN 5.4 gm/dL (6.4-8.2)
[2020-02-10 08:24] VITALS: BP 157/110; PULSE 105; TEMP 98.2
[2020-02-10] MEDS ORDERED: FERROUS SU325 MG/TAB PO (09:02)
[2020-02-10] MEDS ORDERED: TYLENOL 500MG500 MG PO (09:04)
[2020-02-10] MEDS ORDERED: ROXICODONE 55 MG/TAB PO (09:11)
[2020-02-10] MEDS ORDERED: ASPIRIN 81M81 MG/TA2 PO (09:12)
--- NOTE | 2020-02-10 10:06 | NUR ---
Assessment completed, alert/oriented, vital signs stable/ HTN and I have notifed the hospitalist, abdomen is soft and BS +, patient does report still having significatn diffuse abd discomfort, PRN pain meds given, 4x laproscopic incision sites look goood and are ADDISON, potassium 3.3 and started on K replacement protocol, she is tolerting PO intake well and ate all her breakfast, heart RRR, lungs CTA, she has scabs and sores all over as she picks at her skin constantly, up to chair with PT and does well, denies other needs at [facility]
[2020-02-10 12:12] VITALS: BP 155/92; PULSE 89; TEMP 97.9
--- NOTE | 2020-02-10 15:59 | NUR ---
Break Off Worker attended clinical rounds with the team and patient is ready for discharge today. ELISA met with patient who still feels at this time she needs to go to rehab at [facility]. ELISA contacted patient's , Laurent who is also in agreement now. Patient's COVID test is still pending. ELISA collaborated with Jaron GurrolaAir/Ocean Export Clerk and rapid swab ordered. Rapid returned negative. ELISA coordinated with Alfred at [facility] to set transport time for 1600. ELISA provided transport time to patient, TATY Valdes, and patient's Laurent. ELISA faxed negative COVID results and discharge orders to Alfred at [facility]. No additional needs at this time.
[2020-02-10 16:07] VITALS: BP 155/92; PULSE 89; TEMP 97.9
--- NOTE | 2020-02-10 16:30 | NUR ---
Patient is discharging to [facility], IV removed, attempted to call report to recieving nurse, patient leaving with transportation personel at this time
== END 2020-02-10 17:16 | DRG 417 ==
LOC: COL.ER 14:30 → MEDICAL 16:20
PROVIDERS: Emergency Medicine; Hospitalist; Physician Assistant; Surgery; ADMIT Internal Medicine
PROC: BF141ZZ Fluoroscopy of Gallbladder, Bile Ducts and Pancreatic Ducts using Low Osmolar Contrast (ICD-10-PCS; 2020-02-09)
PROC: 0FT44ZZ Resection of Gallbladder, Percutaneous Endoscopic Approach (ICD-10-PCS; principal; 2020-02-09 13:00)
DX: K85.10 Biliary acute pancreatitis without necrosis or infection (principal); E43 Unspecified severe protein-calorie malnutrition; I10 Essential (primary) hypertension; K85.20 Alcohol induced acute pancreatitis without necrosis or infection; E78.5 Hyperlipidemia, unspecified; J45.909 Unspecified asthma, uncomplicated; F41.9 Anxiety disorder, unspecified; F32.9 Major depressive disorder, single episode, unspecified; K21.9 Gastro-esophageal reflux disease without esophagitis; Z66 Do not resuscitate; G62.9 Polyneuropathy, unspecified; K86.1 Other chronic pancreatitis; G43.709 Chronic migraine without aura, not intractable, without status migrainosus; F42.4 Excoriation (skin-picking) disorder; D64.9 Anemia, unspecified; S42.002D Fracture of unspecified part of left clavicle, subsequent encounter for fracture with routine healing; D72.829 Elevated white blood cell count, unspecified; Z86.73 Personal history of transient ischemic attack (TIA), and cerebral infarction without residual deficits; Z87.891 Personal history of nicotine dependence; Z22.7 Latent tuberculosis; Z68.22 Body mass index [BMI] 22.0-22.9, adult
CPT/HCPCS: 99222-AI; 99232-AI; J0360; J0690; J1100; J1170; J1650; J2405; J2704; J3010; J7030; J7120; Q9967

== ENCOUNTER 2020-03-17 11:41 | Emergency (ER) | payer MEDICARE, OTHER ==
[~2020-03-17] VITALS: Wt 53.2 kg
[~2020-03-17 11:41] MED LIST changes: +ASPIRIN 81M81 MG/TA2 PO; +CALTRATE-600 W600 MG PO; +CENTANY AT2% TP; +DOXYCYCLINE 10100 MG PO; +FERROUS SU325 MG/TAB PO; +TRIAMCINOLONE A15 G3 TP; +ZYRTEC 10MG10 MG PO
[2020-03-17 12:07] VITALS: TEMP 98.7
[2020-03-17] MEDS ORDERED: TYLENOL 325MG325 MG PO (16:21)
[2020-03-17 16:28] VITALS: BP 141/74; PULSE 94
== END 2020-03-17 16:50 | disposition home or self-care (01) ==
LOC: COL.ER 11:41
DX: M54.5 Low back pain (principal); Z88.8 Allergy status to other drugs, medicaments and biological substances; Z79.82 Long term (current) use of aspirin

== ENCOUNTER 2020-06-24 13:42 | Emergency (ER) | payer MEDICARE, OTHER ==
[~2020-06-24] VITALS: Ht 162.6 cm; Wt 51.4 kg
[~2020-06-24 13:42] MED LIST changes: -MELATONIN1 MG PO; +MELATONIN5 M1 PO; +SEROQUEL300 MG PO; -SEROQUEL50 MG PO; +TYLENOL 325MG325 MG PO
[2020-06-24 13:47] VITALS: TEMP 97.3
[2020-06-24 14:51] LABS: HEMOGLOBIN 11.7 g/dl (12.5-16.0); MEAN CELL VOLUME 87 fl (80.0-100.0); MEAN CORPUSCULAR HEMOGLOBIN 28 pg (27.0-31.0); MEAN CORPUSCULAR HGB CONC 32 g/dl (33.0-37.0); MEAN PLATELET VOLUME 8.4 fl (7.4-10.4); PLATELET COUNT 369 K/mm3 (130-400); RED BLOOD COUNT 4.13 M/mm3 (4.10-5.30)
[2020-06-24 14:53] LABS: HEMATOCRIT 36.1 % (37.0-47.0); PROTHROMBIN TIME 10.7 SECONDS (9.7-12.8)
[2020-06-24 14:57] LABS: ALANINE AMINOTRANSFERASE 41 U/L (4-34); ALBUMIN 3.6 gm/dL (3.5-5.0); ALKALINE PHOSPHATASE 137 U/L (50-136); ANION GAP 11 mmol/L (7-16); AST,SGOT 75 U/L (15-37); BILIRUBIN,TOTAL < 0.1 mg/dL (0.0-1.0); BLOOD UREA NITROGEN 10 mg/dL (7-17); C-REACTIVE PROTEIN 1.3 mg/dL (0.0-0.9); CALCIUM 8.4 mg/dL (8.4-10.2); CARBON DIOXIDE 21 mmol/L (22-30); CHLORIDE 104 mmol/L (98-107); CREATININE, serum 0.56 (0.52-1.25); GLUCOSE 87 mg/dL (74-106); POTASSIUM 4.1 mmol/L (3.4-5.0); SODIUM 135 mmol/L (137-145); TOTAL PROTEIN 6.2 gm/dL (6.4-8.2)
[2020-06-24 15:53] LABS: LYMPHOCYTE 27 % (20.0-51.0); NEUTROPHILS 62 % (42.0-75.2); STOMATOCYTE 1+
[2020-06-24 15:54] LABS: ANISOCYTOSIS 1+; HYPOCHROMIA 1+; PLATELET ESTIMATE NORMAL (NORMAL)
[2020-06-24] MEDS ORDERED: PERCOCET 325 MG1 TA2 PO (16:51)
[2020-06-24 17:21] VITALS: BP 139/74; PULSE 94
== END 2020-06-24 17:27 | disposition home or self-care (01) ==
LOC: COL.ER 13:42
PROVIDERS: Physician Assistant
DX: G89.29 Other chronic pain (principal); M54.5 Low back pain; I10 Essential (primary) hypertension; J45.909 Unspecified asthma, uncomplicated; F41.9 Anxiety disorder, unspecified; F32.9 Major depressive disorder, single episode, unspecified; Z86.73 Personal history of transient ischemic attack (TIA), and cerebral infarction without residual deficits; Z88.8 Allergy status to other drugs, medicaments and biological substances; Z87.891 Personal history of nicotine dependence; Z79.82 Long term (current) use of aspirin; W05.0XXA Fall from non-moving wheelchair, initial encounter; Y92.009 Unspecified place in unspecified non-institutional (private) residence as the place of occurrence of the external cause
CPT/HCPCS: J1170; J1885; J3010; J7030

== ENCOUNTER 2020-07-07 11:20 | Emergency (ER) | payer MEDICARE, OTHER ==
[~2020-07-07] VITALS: Ht 162.6 cm; Wt 51.4 kg
[2020-07-07 11:34] VITALS: TEMP 98.7
[2020-07-07] MEDS ORDERED: FLEXERIL 1010 MG/TAB PO (12:18)
[2020-07-07] MEDS ORDERED: PERCOCET 325 MG1 TA2 PO (12:18)
[2020-07-07 12:32] VITALS: BP 112/65; PULSE 72
== END 2020-07-07 12:32 | disposition home or self-care (01) ==
LOC: COL.ER 11:20
DX: S32.010A Wedge compression fracture of first lumbar vertebra, initial encounter for closed fracture (principal); G89.29 Other chronic pain; M54.5 Low back pain; Z87.891 Personal history of nicotine dependence; Z88.1 Allergy status to other antibiotic agents; Z88.7 Allergy status to serum and vaccine; Z98.890 Other specified postprocedural states; Z88.8 Allergy status to other drugs, medicaments and biological substances; Z99.3 Dependence on wheelchair; Z98.1 Arthrodesis status; Z79.82 Long term (current) use of aspirin; Z79.891 Long term (current) use of opiate analgesic; Z79.51 Long term (current) use of inhaled steroids; W19.XXXA Unspecified fall, initial encounter

== ENCOUNTER 2020-07-20 14:35 | Emergency (ER) | payer MEDICARE, OTHER ==
[~2020-07-20] VITALS: Ht 162.6 cm; Wt 51.4 kg
[~2020-07-20 14:35] MED LIST changes: +FLEXERIL 1010 MG/TAB PO
[2020-07-20 14:48] VITALS: TEMP 98.7
[2020-07-20 15:36] LABS: HEMOGLOBIN 11.9 g/dl (12.5-16.0); MEAN CELL VOLUME 87 fl (80.0-100.0); MEAN CORPUSCULAR HEMOGLOBIN 29 pg (27.0-31.0); MEAN CORPUSCULAR HGB CONC 33 g/dl (33.0-37.0); MEAN PLATELET VOLUME 8.4 fl (7.4-10.4); PLATELET COUNT 380 K/mm3 (130-400); RED BLOOD COUNT 4.16 M/mm3 (4.10-5.30); REDCELL DISTRIBUTION WIDTH-CV 14.6 % (11.5-14.5)
[2020-07-20 15:46] LABS: ALBUMIN 3.8 gm/dL (3.5-5.0); BILIRUBIN,TOTAL 0.1 mg/dL (0.0-1.0); CALCIUM 8.4 mg/dL (8.4-10.2); CREATININE, serum 0.57 (0.52-1.25); POTASSIUM 4.1 mmol/L (3.4-5.0); TOTAL PROTEIN 6.5 gm/dL (6.4-8.2)
[2020-07-20 16:34] LABS: BAND 4 % (0-10); EOSINOPHIL 6 % (0-4); LYMPHOCYTE 36 % (20.0-51.0); NEUTROPHILS 50 % (42.0-75.2)
[2020-07-20] MEDS ORDERED: AQUAPHOR HEALING41% TP (16:39)
[2020-07-20] MEDS ORDERED: ATARAX 25MG25 MG/TAB PO (16:39)
[2020-07-20] MEDS ORDERED: CYMBALTA 30MG30 MG PO (16:41)
[2020-07-20] MEDS ORDERED: CEPHALEXIN500 M1 PO (16:42)
[2020-07-20] MEDS ORDERED: [UNRECOGNIZED DRUG - OTHER] TP (16:43)
[2020-07-20] MEDS ORDERED: NORCO 325 MG-51 TAB PO (17:09)
[2020-07-20 17:39] VITALS: BP 155/103; PULSE 105
== END 2020-07-20 17:39 | disposition home or self-care (01) ==
LOC: COL.ER 14:35
PROVIDERS: Family Medicine
DX: S32.009A Unspecified fracture of unspecified lumbar vertebra, initial encounter for closed fracture (principal); M75.01 Adhesive capsulitis of right shoulder; L98.8 Other specified disorders of the skin and subcutaneous tissue; I10 Essential (primary) hypertension; F41.9 Anxiety disorder, unspecified; F32.9 Major depressive disorder, single episode, unspecified; J45.909 Unspecified asthma, uncomplicated; K21.9 Gastro-esophageal reflux disease without esophagitis; Z86.73 Personal history of transient ischemic attack (TIA), and cerebral infarction without residual deficits; Z90.49 Acquired absence of other specified parts of digestive tract; Z88.7 Allergy status to serum and vaccine; Z98.890 Other specified postprocedural states; Z88.8 Allergy status to other drugs, medicaments and biological substances; Z91.048 Other nonmedicinal substance allergy status; Z79.899 Other long term (current) drug therapy; W19.XXXA Unspecified fall, initial encounter

== ENCOUNTER 2020-08-09 14:48 | Inpatient (IN) | payer MEDICARE, OTHER ==
[2020-08-09] VITALS (172 sets, daily range): BP systolic 152; BP diastolic 108; PULSE 108; TEMP 98; O2SAT 91–99
[~2020-08-09] VITALS: Ht 162.6 cm; Wt 52.8 kg
[~2020-08-09 14:48] MED LIST changes: +AQUAPHOR HEALING41% TP; +ATARAX 25MG25 MG/TAB PO; +[UNRECOGNIZED DRUG - OTHER] TP
[2020-08-09 16:17] LABS: BASO # 0.1 (0.0-0.2); BASO % 0.5 % (0.0-2.0); EOS # 0.1 (0.0-0.7); EOS % 0.5 % (0-4.0); GRAN # 13.3 (1.4-6.5); GRAN % 80.5 % (42.2-75.2); HEMOGLOBIN 14.3 g/dl (12.5-16.0); LYMPH # 1.6 (1.2-3.4); LYMPH % 9.5 % (20.0-51.0); MEAN CELL VOLUME 87 fl (80.0-100.0); MEAN CORPUSCULAR HEMOGLOBIN 29 pg (27.0-31.0); MEAN CORPUSCULAR HGB CONC 33 g/dl (33.0-37.0); MEAN PLATELET VOLUME 8.3 fl (7.4-10.4); MONO # 1.3 (0.1-0.6); MONO % 7.9 % (1.7-9.3); PLATELET COUNT 511 K/mm3 (130-400); RED BLOOD COUNT 4.93 M/mm3 (4.10-5.30); REDCELL DISTRIBUTION WIDTH-CV 12.9 % (11.5-14.5)
[2020-08-09 16:27] LABS: ALBUMIN 4.4 gm/dL (3.5-5.0); BILIRUBIN,TOTAL 0.9 mg/dL (0.0-1.0); CALCIUM 9.3 mg/dL (8.4-10.2); CREATININE, serum 0.44 (0.52-1.25); TOTAL PROTEIN 7.7 gm/dL (6.4-8.2)
[2020-08-09 16:58] LABS: TROPONIN-I 0.021 ng/mL (0.000-0.035)
[2020-08-09 17:56] LABS: ALCOHOL(ethanol),MEDICAL < 10 mg/dL; TRIGLYCERIDE 132 mg/dL
[2020-08-09 18:55] LABS: PROTHROMBIN TIME 10.9 SECONDS (9.7-12.8)
[2020-08-09 18:58] LABS: MAGNESIUM 2.3 mg/dL (1.6-2.3); PHOSPHOROUS 4.5 mg/dL (2.5-4.5)
[2020-08-09 19:03] LABS: COLLECTION METHOD CLEAN CATCH
[2020-08-09 19:11] LABS: MUCOUS Present /lpf; PH 5 (5-8); SQUAMOUS EPITHELIAL 0-2 /hpf; URINE APPEARANCE Clear; URINE BACTERIA None Seen /hpf; URINE BILIRUBIN Negative (NEGATIVE); URINE BLOOD Negative (NEGATIVE); URINE COLOR Yellow; URINE GLUCOSE Negative (NEGATIVE); URINE KETONE Trace (NEGATIVE); URINE LEUKOCYTE ESTERASE Negative (NEGATIVE); URINE NITRATE Negative (NEGATIVE); URINE PROTEIN(semi-quant) Negative (NEGATIVE); URINE RBC 0-2 /hpf; URINE UROBILINOGEN Negative (NEGATIVE); URINE WBC 0-2 /hpf
[2020-08-09 19:16] LABS: TRICYCLIC ANTIDEPRESS URINE POSITIVE
[2020-08-09] MEDS ORDERED: ONE-A-DAY ESSE1 EACH PO (19:24)
[2020-08-09] MEDS ORDERED: BONIVA150 MG PO (19:24)
[2020-08-09] MEDS ORDERED: TYLENOL 500MG500 MG PO (19:26)
[2020-08-09] MEDS ORDERED: ASPIRIN 81M81 MG/TA2 PO (19:32)
--- NOTE | 2020-08-09 20:00 | NUR ---
Pt arrived to ICU room 2 via cart with ED RN and daughter at the bedside. Pt transferred from the cart to the ICU bed with the assistance of two. Pt oriented to room and call light system. Pt is now resting quietly in the bed and she denies further needs. Call light within reach.
[2020-08-10] VITALS (476 sets, daily range): BP systolic 93–175; BP diastolic 63–124; PULSE 89–106; TEMP 97.8–98.6; O2SAT 83–100
[2020-08-10 05:53] LABS: BASO # 0.1 (0.0-0.2); BASO % 0.4 % (0.0-2.0); EOS # 0.2 (0.0-0.7); EOS % 1.4 % (0-4.0); GRAN # 9.1 (1.4-6.5); GRAN % 78.2 % (42.2-75.2); LYMPH # 1.3 (1.2-3.4); LYMPH % 11.2 % (20.0-51.0); MEAN CORPUSCULAR HGB CONC 32 g/dl (33.0-37.0); MEAN PLATELET VOLUME 8.8 fl (7.4-10.4); MONO # 0.9 (0.1-0.6); MONO % 7.9 % (1.7-9.3); RED BLOOD COUNT 3.65 M/mm3 (4.10-5.30); REDCELL DISTRIBUTION WIDTH-CV 13.2 % (11.5-14.5)
[2020-08-10 06:01] LABS: HEMATOCRIT 33.8 % (37.0-47.0); HEMOGLOBIN 10.7 g/dl (12.5-16.0); MEAN CELL VOLUME 93 fl (80.0-100.0); MEAN CORPUSCULAR HEMOGLOBIN 29 pg (27.0-31.0)
[2020-08-10 06:02] LABS: PLATELET COUNT 296 K/mm3 (130-400)
[2020-08-10 06:07] LABS: ALBUMIN 2.8 gm/dL (3.5-5.0); BILIRUBIN,TOTAL 1.1 mg/dL (0.0-1.0); CALCIUM 7.7 mg/dL (8.4-10.2); CREATININE, serum 0.49 (0.52-1.25); POTASSIUM 3.9 mmol/L (3.4-5.0); TOTAL PROTEIN 5.3 gm/dL (6.4-8.2)
--- NOTE | 2020-08-10 07:06 | NUR ---
Bedside shift report given to TATY Ashford.
[2020-08-10 08:27] LABS: ACETAMINOPHEN < 10 ug/mL (10-30); SALICYLATE < 1.0 mg/dL
--- NOTE | 2020-08-10 13:03 | NUR ---
Order Builder met with patient and patient's , Laurent (ph#[phone]) to discuss discharge planning. Patient lives in [place] with Laurent and their daughter, Ethel. Patient sees Dr. Meza for primary care and obtains medications from [facility] pharmacy with no difficulties. Patient uses a wheelchair for mobility and also has two walkers at home. Patient states it is very taxing for her to take steps or walk. Patient does report she is mostly independent with ADLS but does have Ethel help her with dressing. Patient has Advance Directives in EMR which designate her Laurent as primary and her two daughters, Doris and Ethel as secondary. SW reviewed PT's recommendation for Home with Home Health and possible need for post acute rehab. Patient states she is still trying to decide which direction to go, but is interested in rehab. Patient states her preferences are 1)[facility] and 2)[facility]. SW also provided Medicare.gov list of Home Health agencies incase she changes her mind. SW faxed referrals to both facilities. Discharge Plan: Awaiting screens from [facility] and [facility].
--- NOTE | 2020-08-10 16:35 | NUR ---
PT ARRIVED FROM ICU WITH JEFFERSON POSEY AND PT'S . PT STOOD AND TRANSFERED TO BED. PT IS AXOX4. PT HAS NS RUNNING THRU LEFT UA IV. PT ORIENTED TO ROOM AND FLOOR. PT INSTRUCTED TO CALL WITH ALL NEEDS AND NOT TO GET UP WITHOUT ASSISTANCE. PT'S BP ELEVATED. PRN HYDRALAZINE GIVEN. WILL CONTINUE TO MONITOR.
--- NOTE | 2020-08-10 19:31 | NUR ---
RECEIVED CHANGE OF SHIFT REPORT FROM DAY SHIFT NURSE.
--- NOTE | 2020-08-10 20:00 | NUR ---
DENIES CHEST PAIN/SOA AT THIS TIME, DENIES NUMBNESS/TINGLING TO EXTREMITIES AT THIS TIME. TELE IN PLACE. IVF CHANGED FROM LUE TO RFA AND INFUSING WITH NO PROBLEMS
--- NOTE | 2020-08-10 23:50 | NUR ---
INFORMED ONCALL PROVIDER OF DETOX SCORES FOR PAST 12 HOURS, ORDER GIVEN TO CHANGE FREQUENCY TO Q4HR
[2020-08-11] VITALS (7 sets, daily range): BP systolic 99–159; BP diastolic 51–95; PULSE 91–103; TEMP 97.7–98.6
[2020-08-11 06:29] LABS: BASO % 0.5 % (0.0-2.0); EOS # 0.2 (0.0-0.7); EOS % 2.3 % (0-4.0); GRAN # 5.9 (1.4-6.5); GRAN % 75.6 % (42.2-75.2); LYMPH # 0.9 (1.2-3.4); LYMPH % 10.9 % (20.0-51.0); MEAN CELL VOLUME 89 fl (80.0-100.0); MEAN CORPUSCULAR HGB CONC 32 g/dl (33.0-37.0); MEAN PLATELET VOLUME 8.9 fl (7.4-10.4); MONO # 0.7 (0.1-0.6); MONO % 9.5 % (1.7-9.3); PLATELET COUNT 275 K/mm3 (130-400); RED BLOOD COUNT 3.34 M/mm3 (4.10-5.30); REDCELL DISTRIBUTION WIDTH-CV 13.2 % (11.5-14.5)
[2020-08-11 06:32] LABS: HEMATOCRIT 29.8 % (37.0-47.0); HEMOGLOBIN 9.6 g/dl (12.5-16.0); MEAN CORPUSCULAR HEMOGLOBIN 29 pg (27.0-31.0)
[2020-08-11 06:39] LABS: ALBUMIN 2.7 gm/dL (3.5-5.0); BILIRUBIN,TOTAL 0.6 mg/dL (0.0-1.0); CALCIUM 8.1 mg/dL (8.4-10.2); CREATININE, serum 0.51 (0.52-1.25); POTASSIUM 3.3 mmol/L (3.4-5.0); TOTAL PROTEIN 5.3 gm/dL (6.4-8.2)
--- NOTE | 2020-08-11 07:30 | NUR ---
Report received from TATY Gee. pT in bed resting, requesting pain meds after breathing treatment completed. Will continue to monitor.
--- NOTE | 2020-08-11 07:30 | NUR ---
CHANGE OF SHIFT REPORT GIVEN TO DAY SHIFT NURSE, MARISOL RN
--- NOTE | 2020-08-11 08:47 | NUR ---
Called VIVIAN Padron regarding am blood sugar being low and pt request for pain meds withouth PO options. Aidee reviewed and orders received and inputted. PT doing well now, PRN pain meds given for pain of 7/10 to shoulder, back, and abd. IVF to RFA. Will continue to monitor.
--- NOTE | 2020-08-11 10:53 | NUR ---
Initial visit; Patient thanked Toy Assembly Supervisor for stopping though declined spiritual care.
--- NOTE | 2020-08-11 16:02 | NUR ---
Yard Attendant contacted Alfred at [facility] and faxed clinical updates. Alfred advised they can accept upon discharge.
--- NOTE | 2020-08-11 19:23 | NUR ---
Pt has done well over shift, PRN pain meds provided per request. PT resting in bed, states pain is improved, tolerated CL diet well. Bedside shift report given to nightshift nurse who willr esume care.
--- NOTE | 2020-08-11 23:41 | NUR ---
Shift assessment completed. Patient alert and oriented. Patient states feeling much better today. Denies any pain or discomfort at this time. Patient denies SOB, N/V, headache, or dizziness. Patient tolerating clear liquid diet. All scheduled meds given per MAY. Call light within reach. Patient denies any needs at this time.
[2020-08-12] VITALS (7 sets, daily range): BP systolic 138–157; BP diastolic 82–111; PULSE 91–105; TEMP 98.2–98.6
[2020-08-12 06:29] LABS: MEAN CELL VOLUME 90 fl (80.0-100.0); MEAN CORPUSCULAR HGB CONC 32 g/dl (33.0-37.0); PLATELET COUNT 298 K/mm3 (130-400); RED BLOOD COUNT 3.37 M/mm3 (4.10-5.30); REDCELL DISTRIBUTION WIDTH-CV 13.4 % (11.5-14.5)
[2020-08-12 06:42] LABS: ALBUMIN 2.8 gm/dL (3.5-5.0); BILIRUBIN,TOTAL 0.3 mg/dL (0.0-1.0); CALCIUM 8.6 mg/dL (8.4-10.2); CREATININE, serum 0.49 (0.52-1.25); POTASSIUM 3.4 mmol/L (3.4-5.0); TOTAL PROTEIN 5.5 gm/dL (6.4-8.2)
[2020-08-12 06:53] LABS: HEMATOCRIT 30.3 % (37.0-47.0); HEMOGLOBIN 9.7 g/dl (12.5-16.0); MEAN CORPUSCULAR HEMOGLOBIN 29 pg (27.0-31.0)
--- NOTE | 2020-08-12 07:02 | NUR ---
Blood transfusion completed at 0700 am. Patient tolerated well. VS stable. No adverse reaction to blood transfusion noted. Call light within reach.
[2020-08-12 07:54] LABS: EOSINOPHIL 7 % (0-4); LYMPHOCYTE 17 % (20.0-51.0); NEUTROPHILS 63 % (42.0-75.2)
[2020-08-12 07:55] LABS: HYPOCHROMIA 1+; PLATELET ESTIMATE NORMAL (NORMAL)
--- NOTE | 2020-08-12 09:00 | NUR ---
PT PLEASANT, AOX4, SOB AT REST AND PT REPORTS BEING SOB ALL THE TIME, DENIES OXYGEN USAGE, PT O2 SATS STABLE, REPORTS PAIN 8/10 IN ABD AND BACK, PAIN MEDICATION GIVEN WITH ALL OTHER MORNING MEDICATIONS. ASSESSMENT PERFORMED, IV SITE FLUSHED, NO OTHER NEEDS.
--- NOTE | 2020-08-12 15:23 | NUR ---
PT TOLERATED LUNCH WELL, ATE 2 CHICKEN FINGERS AND A BOWL OF STRAWBERRIES. REPORTS PAIN 4/10 IN ABD. REQUESTS TO STAY OVERNIGHT, MESSAGE RELAYED TO PORTIA PARK.
--- NOTE | 2020-08-12 17:01 | NUR ---
PT HAD ELEVATED BP, NOTIFIED [facility], ORDERED TO REASSESS IN 30MIN AND GIVE HYDRALAZINE IF DIASTOLIC OVER 105
--- NOTE | 2020-08-12 17:51 | NUR ---
PT C/O ABD PAIN 07/01. BP REASSESSED AND ELEVATED SO HYDRALAZINE WILL BE GIVEN. PT PLEASANT, OVERALL UNEVENTFUL SHIFT, TOLERATED GENERAL DIET WELL, WANTED TO STAY OVERNIGHT
--- NOTE | 2020-08-12 23:08 | NUR ---
Patient assessed around 2049. Alert and oriented x 4, and able to make needs known. Reported level 7 pain to abdomen. Given PRN Roxicodone at that time. On follow up, pain still at a 6, and given 2nd dose of Roxicodone as requested around 2144. Peripheral INT to right forearm. Denies SOB and dyspnea. LS CTA. Respirations even and unlabored. HRR. Telemetry in place. Capillary refill less than 3 seconds. Non-tenting skin turgor. BSAx4. Abdomen soft and non-tender. No edema. Eczema to BLE, cream applied per orders. Voices no questions, needs, or concerns at this time. Resting in bed with call light within reach.
[2020-08-13 00:35] VITALS: BP 123/79; PULSE 97; TEMP 98.3
[2020-08-13 04:56] VITALS: BP 135/79; PULSE 90; TEMP 97.4
--- NOTE | 2020-08-13 05:42 | NUR ---
Patient has been resting in bed with call light within reach. Has denied needing any pain medication since receiving PRN Roxicodone at bedtime (required two doses). Patient voices no questions, needs, or concerns at this time.
[2020-08-13 06:32] LABS: HEMOGLOBIN 10.8 g/dl (12.5-16.0); MEAN CELL VOLUME 91 fl (80.0-100.0); MEAN CORPUSCULAR HEMOGLOBIN 30 pg (27.0-31.0); MEAN CORPUSCULAR HGB CONC 33 g/dl (33.0-37.0); MEAN PLATELET VOLUME 8.9 fl (7.4-10.4); PLATELET COUNT 344 K/mm3 (130-400); RED BLOOD COUNT 3.64 M/mm3 (4.10-5.30); REDCELL DISTRIBUTION WIDTH-CV 13.7 % (11.5-14.5)
[2020-08-13 06:40] LABS: ALBUMIN 3.2 gm/dL (3.5-5.0); BILIRUBIN,TOTAL 0.3 mg/dL (0.0-1.0); CALCIUM 9.1 mg/dL (8.4-10.2); CREATININE, serum 0.54 (0.52-1.25); HEMATOCRIT 33.1 % (37.0-47.0); POTASSIUM 4.1 mmol/L (3.4-5.0); TOTAL PROTEIN 6.1 gm/dL (6.4-8.2)
[2020-08-13 07:51] LABS: BAND 1 % (0-10); EOSINOPHIL 8 % (0-4); LYMPHOCYTE 17 % (20.0-51.0); METAMYELOCYTE 2 % (0-0); NEUTROPHILS 67 % (42.0-75.2); PLATELET ESTIMATE NORMAL (NORMAL)
[2020-08-13 07:57] VITALS: BP 148/94; PULSE 88; TEMP 98
--- NOTE | 2020-08-13 08:00 | NUR ---
Patient laying in bed, A&Ox4. VSS. IV CDI. Reporting pain in back, pain medication given as requested. No further needs expressed from the patient. Call light within reach. Patient is hoping go to [facility] today
[2020-08-13] MEDS ORDERED: ROXICODONE 55 MG/TAB PO (09:32)
[2020-08-13 11:34] VITALS: BP 132/100; PULSE 99; TEMP 98.1
--- NOTE | 2020-08-13 13:36 | NUR ---
IV removed, tip intact, banaid applied. Report called to [facility]. Nurse assisted patient with getting dressed. Discharge packet with [facility] transporter. No further needs expressed from the patient.
--- NOTE | 2020-08-14 16:27 | NUR ---
ELISA informed patient would be discharged on 08/13/2020. ELISA called [facility] staff to inform of patient discharge, and discharge documentation faxed to facility. [facility] staff member Alfred provided that patient can be picked up at 1pm. Nothing further.
== END 2020-08-13 13:35 | DRG 439 ==
LOC: COL.ER 14:48 → ICU 19:02 → MEDICAL 08-10 16:47
PROVIDERS: Emergency Medicine; Internal Medicine; Nurse Practitioner Family; Nurse Practitioner Primary Care; Physician Assistant; ADMIT Emergency Medicine
DX: K85.20 Alcohol induced acute pancreatitis without necrosis or infection (principal); R65.10 Systemic inflammatory response syndrome (SIRS) of non-infectious origin without acute organ dysfunction; E87.2 Acidosis; E44.0 Moderate protein-calorie malnutrition; J45.909 Unspecified asthma, uncomplicated; K86.1 Other chronic pancreatitis; E87.6 Hypokalemia; F32.9 Major depressive disorder, single episode, unspecified; E78.5 Hyperlipidemia, unspecified; R74.01 Elevation of levels of liver transaminase levels; T39.1X5A Adverse effect of 4-Aminophenol derivatives, initial encounter; E87.8 Other disorders of electrolyte and fluid balance, not elsewhere classified; R51.9 Headache, unspecified; K21.9 Gastro-esophageal reflux disease without esophagitis; I45.10 Unspecified right bundle-branch block; F42.4 Excoriation (skin-picking) disorder; I77.810 Thoracic aortic ectasia; J84.10 Pulmonary fibrosis, unspecified; Z66 Do not resuscitate; F10.10 Alcohol abuse, uncomplicated; Y90.0 Blood alcohol level of less than 20 mg/100 ml; Z86.73 Personal history of transient ischemic attack (TIA), and cerebral infarction without residual deficits; Z22.7 Latent tuberculosis
CPT/HCPCS: 99223-AI; 99232-AI; 99239; J0360; J1170; J1650; J2060; J2270; J2405; J2543; J3411; J7030; Q9967

== ENCOUNTER → 2020-09-21 | Outpatient (CLI) | payer MEDICARE, OTHER ==
[~2020-09-21] MED LIST changes: +CELEBREX 200MG200 MG PO; +DUPIXENT P300 MG/2 M SQ; +ONE-A-DAY ESSE1 EACH PO; +VITAMIN D31000 I1 PO
== END ==
LOC: COL.RAD 07:50
DX: T84.52XA Infection and inflammatory reaction due to internal left hip prosthesis, initial encounter (principal)

== ENCOUNTER 2020-12-15 09:17 | Inpatient (IN) | payer MEDICARE, OTHER ==
[~2020-12-15] VITALS: Ht 162.6 cm; Wt 55.9 kg
[~2020-12-15 09:17] MED LIST changes: -CELEBREX 200MG200 MG PO; -DUPIXENT P300 MG/2 M SQ; -VITAMIN D31000 I1 PO
[2021-02-08] VITALS (11 sets, daily range): BP systolic 96–135; BP diastolic 66–95; PULSE 87–110; TEMP 97.7–98.6
[2021-02-08] MEDS ORDERED: PROAIR HFA0.09 MG/AC IH (06:16)
[2021-02-08] MEDS ORDERED: DUPIXENT P300 MG/2 M SQ (06:17)
[2021-02-08] MEDS ORDERED: VITAMIN D31000 I1 PO (06:18)
--- NOTE | 2021-02-08 10:25 | NUR ---
PT ARRIVED TO THE FLOOR AT 1025. PT IS ALERT AND ORIENTED AND IS NOT COMPLAINING OF ANY PAIN. VITALS ARE STABLE AND POST OPS RUNNING. ICE WATER GIVEN TO PATIENT AND HER IS ON THE WAY. PT HAS NO OTHER NEEDS OR COMPLAINTS. CALL LIGHT AND BELONGINGS WITHIN REACH.
[2021-02-08] MEDS ORDERED: CELEBREX 200MG200 MG PO (15:29)
[2021-02-08] MEDS ORDERED: ASPI325T6 PO (15:29)
[2021-02-08] MEDS ORDERED: ROXICODONE 55 MG/TAB PO (15:30)
[2021-02-08] MEDS ORDERED: TYLENOL 500MG500 MG PO (15:30)
--- NOTE | 2021-02-08 20:54 | NUR ---
PT IN BED. IS ALERT AND ORIENTED X4. HAS LARGE BULKY DRSG TO LEFT HIP. TAKES HS MEDS INCLUDING OXYCODONE 5MG PO FOR LEFT HIP PAIN. SL TO RFA FLUSHES WELL. DENIES NEED TO USE BSC. NEW ICE PACK APPLIED TO LEFT HIP.
--- NOTE | 2021-02-08 22:06 | NUR ---
IV ANCEF GIVEN. PT DENIES NEED TO USE THE BATHROOM.
--- NOTE | 2021-02-09 00:01 | NUR ---
PT RESTING WELL, DENIES NEED TO USE THE BATHROOM. RESTING TO RT SIDE.
[2021-02-09 00:19] VITALS: BP 100/57; PULSE 97; TEMP 97.9
[2021-02-09 03:57] VITALS: BP 102/54; PULSE 96; TEMP 98.3
--- NOTE | 2021-02-09 04:15 | NUR ---
PT IN BED, RESTING WELL. LAYING ON RT SIDE. DENIES PAIN. VSS.
--- NOTE | 2021-02-09 05:39 | NUR ---
PT UP TO BATHROOM TO VOID, DOES WELL WITH SBA AND WALKER. BACK TO BED. TAKES SCHEDULED AM MED, DENIES NEED FOR PAIN MEDS AT THIS TIME.
[2021-02-09 07:46] LABS: HEMATOCRIT 27.4 % (37.0-47.0)
[2021-02-09 09:33] VITALS: BP 102/51; PULSE 98; TEMP 97.9
--- NOTE | 2021-02-09 09:39 | NUR ---
Initial visit; Patient thanked Epic Director for looking in on her this morning and wishing her God's blessings.
--- NOTE | 2021-02-09 10:00 | NUR ---
Patient alert and oriented, answers questions appropriately. See assessment. LLE with new Aquacel applied, incision with edges well approximated, no redness or drainage noted. Pulses palpable to LLE, sensation intact. Uses walker and gait belt for ambulation. KENDRICK hose and SCDs in place. No c/o at this time.
--- NOTE | 2021-02-09 11:58 | NUR ---
ELISA met with the patient to discuss discharge plan. The patient lives in [place] with her , Laurent (ph#[phone]), and daughter, Ethel. She reports needing some assistance with ADLs and has a walker, rollator, and wheelchair. She states that her daughter helps her, when needed. She states that she has home health services from [facility] for residential. The patient's PCP is Dr. Gissell Meza and she receives her medications from [facility]. She reports no difficulties obtaining her meds. The patient's DPOA-HC is in EMR and it designates her . The patient had a left hip revision. PT/OT worked with the patient and recommend home health vs post-acute rehab. ELISA addressed this with the patient. The patient reports that she initially thought she was going to need to go to [facility] for SNF, because she also has a bad shoulder. She reports that she has been doing well with therapy and with her mobility though and feels comfortable returning home with home health services from [facility]. ELISA contacted and faxed updates to Kristine at [facility]. Kristine reports that they are good to resume servics and add on PT/OT. ELISA updated the patient's RN. *Discharge plan: home with family and home health*
[2021-02-09 13:09] VITALS: BP 107/54; PULSE 97; TEMP 98.1
--- NOTE | 2021-02-09 14:42 | NUR ---
Discharge instructions reviewed with patient and spouse, verbalized understanding. Discharged via wheelchair to auto/home with spouse at 1440.
--- NOTE | 2021-02-09 15:11 | NUR ---
The patient discharged back home with her family today, 02/09, with home health services for longterm/PT/OT from [facility]. ELISA notified and faxed discharge orders to Kristine at [facility]. No additional needs at this time.
== END 2021-02-09 14:40 | disposition home health service (06) | DRG 468 ==
LOC: INPTSU 02-08 05:32 → SURG 02-08 05:32
PROVIDERS: Physician Assistant; ADMIT Orthopaedic Surgery
PROC: 0SPB0JZ Removal of Synthetic Substitute from Left Hip Joint, Open Approach (ICD-10-PCS; 2021-02-08)
PROC: 0SRB0JZ Replacement of Left Hip Joint with Synthetic Substitute, Open Approach (ICD-10-PCS; principal; 2021-02-08 07:30)
DX: T84.52XA Infection and inflammatory reaction due to internal left hip prosthesis, initial encounter (principal); M81.0 Age-related osteoporosis without current pathological fracture; D50.9 Iron deficiency anemia, unspecified; M48.00 Spinal stenosis, site unspecified; K25.9 Gastric ulcer, unspecified as acute or chronic, without hemorrhage or perforation; I25.2 Old myocardial infarction; G40.909 Epilepsy, unspecified, not intractable, without status epilepticus; E78.5 Hyperlipidemia, unspecified; Z79.82 Long term (current) use of aspirin; Z79.891 Long term (current) use of opiate analgesic; Z99.3 Dependence on wheelchair; Z86.73 Personal history of transient ischemic attack (TIA), and cerebral infarction without residual deficits; Z88.8 Allergy status to other drugs, medicaments and biological substances
CPT/HCPCS: A9284; C1713; C1776; J0690; J1100; J2250; J2370; J2405; J2704; J3010; J7120

== ENCOUNTER 2021-04-07 02:50 | Emergency (ER) | payer MEDICARE, OTHER ==
[~2021-04-07] VITALS: Ht 160 cm; Wt 55.0 kg
[~2021-04-07 02:50] MED LIST changes: +CELEBREX 200MG200 MG PO; +DUPIXENT P300 MG/2 M SQ; +VITAMIN D31000 I1 PO
[2021-04-07 02:53] VITALS: TEMP 98.6
[2021-04-07 04:01] VITALS: BP 132/108; PULSE 81
== END 2021-04-07 04:01 | disposition home or self-care (01) ==
LOC: COL.ER 02:50
DX: S73.005A Unspecified dislocation of left hip, initial encounter (principal); I10 Essential (primary) hypertension; E78.5 Hyperlipidemia, unspecified; J45.909 Unspecified asthma, uncomplicated; F41.9 Anxiety disorder, unspecified; F32.A Depression, unspecified; K21.9 Gastro-esophageal reflux disease without esophagitis; G43.909 Migraine, unspecified, not intractable, without status migrainosus; Z96.642 Presence of left artificial hip joint; Z87.891 Personal history of nicotine dependence; Z79.899 Other long term (current) drug therapy; X58.XXXA Exposure to other specified factors, initial encounter
CPT/HCPCS: L1846

== ENCOUNTER 2021-04-27 13:06 | Outpatient (CLI) | payer MEDICARE, OTHER ==
[~2021-04-27] VITALS: Ht 162.6 cm; Wt 57.5 kg
[2021-04-27 13:35] VITALS: BP 124/80; PULSE 106; TEMP 99
--- NOTE | 2021-04-27 14:30 | NUR ---
Pt remained in dept for 30 mins following initial dose of evenity. Pt tolerated well with no s/s of medication reaction. She is assisted out to 's car by wheelchair.
[2021-04-27] MEDS ORDERED: RT ADVAIR 128 DISKUS IH (15:35)
[2021-04-27] MEDS ORDERED: WELLBUTRIN XL300 M1 PO (15:35)
[2021-04-27] MEDS ORDERED: DUPIXENT P300 MG/2 M SQ (15:36)
[2021-04-27] MEDS ORDERED: ATARAX 25MG25 MG/TAB PO (15:38)
[2021-04-27] MEDS ORDERED: TOPAMAX200 MG PO (15:39)
[2021-04-27] MEDS ORDERED: COZAAR 50MG50 MG/TAB PO (15:39)
[2021-04-27] MEDS ORDERED: IRON TABLETS325 MG PO (15:39)
[2021-04-27] MEDS ORDERED: NEURONTIN800 MG/TAB PO (15:40)
[2021-04-27] MEDS ORDERED: EVENITY (2210 MG/2.3 SQ (15:40)
[2021-04-27] MEDS ORDERED: DOXYCYCLINE 10100 MG PO (15:41)
[2021-04-27] MEDS ORDERED: NORCO 325 MG-101 TAB PO (15:41)
[2021-04-27] MEDS ORDERED: ZETIA 10MG TAB10 MG PO (15:41)
[2021-04-27] MEDS ORDERED: PRIL40 PO (15:42)
[2021-04-27] MEDS ORDERED: WELLBUTRIN SR150 M1 PO (15:42)
[2021-04-27] MEDS ORDERED: ASPIRIN E.C. 8181 MG PO (15:43)
== END 2021-04-27 14:30 | disposition home or self-care (01) ==
LOC: EUO 13:06
DX: M81.0 Age-related osteoporosis without current pathological fracture (principal)
CPT/HCPCS: J3111

== ENCOUNTER 2021-05-25 12:49 | Outpatient (RCR) | payer MEDICARE, OTHER ==
[~2021-05-25] VITALS: Ht 162.6 cm; Wt 57.6 kg
[~2021-05-25 12:49] MED LIST changes: +EVENITY (2210 MG/2.3 SQ; +IRON TABLETS325 MG PO; +PRIL40 PO; +RT ADVAIR 128 DISKUS IH; +ZETIA 10MG TAB10 MG PO
[2021-05-25 13:33] VITALS: BP 119/73; PULSE 89; TEMP 98.3
== END 2021-06-21 | disposition still patient (30) ==
LOC: EUO
DX: M81.0 Age-related osteoporosis without current pathological fracture (principal)
CPT/HCPCS: J3111

== ENCOUNTER 2021-06-22 12:50 | Outpatient (CLI) | payer MEDICARE, OTHER ==
[~2021-06-22] VITALS: Ht 162.6 cm; Wt 56.8 kg
[~2021-06-22 12:50] MED LIST changes: +WELLBUTRIN SR150 M1 PO
[2021-06-22 13:20] VITALS: BP 150/93; PULSE 91; TEMP 98.4
== END 2021-06-22 15:42 | disposition home or self-care (01) ==
LOC: EUO 12:50
DX: M81.0 Age-related osteoporosis without current pathological fracture (principal)
CPT/HCPCS: J3111

== ENCOUNTER 2021-07-20 12:52 | Outpatient (RCR) | payer MEDICARE, OTHER ==
[~2021-07-20] VITALS: Ht 162.6 cm; Wt 58.3 kg
[~2021-07-20 12:52] MED LIST changes: -WELLBUTRIN SR150 M1 PO
[2021-07-20 13:44] VITALS: BP 107/74; PULSE 92; TEMP 98.4
== END 2021-07-20 13:47 ==
LOC: EUO 12:52
DX: M81.0 Age-related osteoporosis without current pathological fracture (principal)
CPT/HCPCS: J3111

== ENCOUNTER → 2021-07-31 | Outpatient (CLI) | payer MEDICARE, OTHER | LOC: MC.RAD 13:06 | DX: Z12.31 Encounter for screening mammogram for malignant neoplasm of breast (principal) ==

== ENCOUNTER 2021-08-17 13:06 | Outpatient (RCR) | payer MEDICARE, OTHER ==
[~2021-08-17] VITALS: Ht 162.6 cm; Wt 57.8 kg
[2021-08-17 13:35] VITALS: BP 115/82; PULSE 100; TEMP 98.8
== END 2021-08-17 16:14 | disposition home or self-care (01) ==
LOC: EUO 13:06
DX: M81.0 Age-related osteoporosis without current pathological fracture (principal)
CPT/HCPCS: J3111

== ENCOUNTER 2021-09-14 13:19 | Outpatient (RCR) | payer MEDICARE, OTHER ==
[~2021-09-14] VITALS: Ht 162.6 cm; Wt 52.7 kg
[2021-09-14 14:00] VITALS: BP 101/68; PULSE 99; TEMP 98.6
== END 2021-09-14 17:24 ==
LOC: EUO 13:19
DX: M81.0 Age-related osteoporosis without current pathological fracture (principal)
CPT/HCPCS: J3111

== ENCOUNTER 2021-10-04 05:25 | Inpatient (IN) | payer MEDICARE, OTHER ==
[2021-10-04] VITALS (11 sets, daily range): BP systolic 102–142; BP diastolic 67–88; PULSE 76–98; TEMP 97.6–99.1
[~2021-10-04] VITALS: Ht 160 cm; Wt 55.9 kg
--- NOTE | 2021-10-04 10:15 | NUR ---
PT ARRIVED FROM PACU AT 1000 TO GEE RN. CARE TAKEN OVER BY THIS RN AT 1015. PT IS AXOX4, PT ORIENTED TO ROOM AND FLOOR. PT IS AWAKE AND ORIENTED. VSS. BEDSIDE. PT HAS CALL LIGHT AND PHONE WITHIN REACH. NO NEEDS AT THIS TIME.
--- NOTE | 2021-10-04 10:16 | NUR ---
Patient to room 324 at 1000, brought on cart, accompanied by PACU nurse Rafat. Ambulated into room with assist x2 and slightly unsteady gait. Immobilizer sling on right shoulder, aquacel dressing in place, CDI. Scattered rashy areas and scratch bal noted to bilateral forearms. CMS WNL. Alert, oriented x4. at bedside. Medications, allergies, and pharmacy reviewed with patient. Pt denies pain or nausea at this time, instructed to call for assistance immediately if these start. Pt taking in ice chips at this time. Instructed that she must have assistance when getting out of bed, pt reports understanding. TEDS on BLE, SCD's on. Oxygen on at 2L/NC at this time. VS stable. Oriented to room and call light system. Report given to TATY Caruso.
[2021-10-04] MEDS ORDERED: ROXICODONE 55 MG/TAB PO (16:14)
--- NOTE | 2021-10-04 21:23 | NUR ---
PT IN BED. IS ALERT AND ORIENTED X4. HAS RT ARM IN SLING, AQUACELL DRSG TO RT SHOULDER. ICE PACK PLACED. TAKES HS MEDS INCLUDING OXYCODONE 10MG PO FOR RT SHOULDER PAIN. HAS SCRATCHES AND RASHY AREAS TO ARMS AND LEGS, PT REPORTS ECZEMA. IV ANTIBIOTIC COMPLETE, CAPPED IVF PT IS TAKING PO WELL.
[2021-10-05 00:24] VITALS: BP 127/76; PULSE 85; TEMP 98
--- NOTE | 2021-10-05 02:50 | NUR ---
PT REFUSES ES TYLENOL.
--- NOTE | 2021-10-05 03:31 | NUR ---
Assisted to bathroom, gait steady. Back to bed after voiding. Ice pack replaced to rt shoulder.
[2021-10-05 03:36] VITALS: BP 133/61; PULSE 76; TEMP 98.9
[2021-10-05 06:52] LABS: HEMOGLOBIN 10.4 g/dl (12.5-16.0)
[2021-10-05 06:59] LABS: HEMATOCRIT 31.8 % (37.0-47.0)
[2021-10-05 07:48] VITALS: BP 139/70; PULSE 83; TEMP 98
--- NOTE | 2021-10-05 09:00 | NUR ---
PT A&O RESTING IN BED. AM MEDS GIVEN AND ASSESSMENT COMPLETED. VS STABLE. PT REPORTS SOME DISCOMFORT IN THE SHOULDER. RT SHOULDER INCISION CDI. NO OTHER NEEDS AT THIS TIME. CALL LIGHT WITHIN REACH.
--- NOTE | 2021-10-05 11:23 | NUR ---
Industrial Editor met with patient to discuss discharge planning. Patient lives in [place] with her , Laurent (ph#[phone]) and daughter, Ethel (ph#[phone]). Patient sees Dr. Meza for primary care and obtains medications from [facility] pharmacy with no difficulties. Patient reports she has all needed DME at home including a cane, front wheeled walker, wheelchair, shower shu, grab bars, and reachers. Patient reports she has some difficulty with bathing, but does okay giving herself sponge baths. Patient reports she had been walking with no DME up until this surgery. Patient has DPOA-HC in EMR which designates her , Laurent. Patient plans to return home today. Discharge Plan: Home
[2021-10-05 12:00] VITALS: BP 126/71; PULSE 83; TEMP 99
--- NOTE | 2021-10-05 12:36 | NUR ---
INT DISCONTINUED AND PT READY FOR DISCHARGE. INSTRUCTIONS GIVEN TO PT WITH NO FURTHER QUESTIONS. CONFIRMED THAT PN SCRIPT AND ABX HAVE BEEN SENT INTO PTS PHARMACY FROM [facility] OFFICE AND HAVE ALREADY BEEN PICKED UP. PT LEFT VIA WHEELCHAIR TO PERSONAL VEHICLE.
== END 2021-10-05 12:35 | disposition home or self-care (01) | DRG 483 ==
LOC: SDCO 05:25 → SURG 10:00 → SDCO 10:15 → SURG 10-05 12:35
PROVIDERS: Physician Assistant; ADMIT Orthopaedic Surgery
PROC: 0RRJ00Z Replacement of Right Shoulder Joint with Reverse Ball and Socket Synthetic Substitute, Open Approach (ICD-10-PCS; principal; 2021-10-04 08:15)
DX: M19.011 Primary osteoarthritis, right shoulder (principal); M75.101 Unspecified rotator cuff tear or rupture of right shoulder, not specified as traumatic; Z96.642 Presence of left artificial hip joint; Z79.82 Long term (current) use of aspirin; Z79.1 Long term (current) use of non-steroidal anti-inflammatories (NSAID); Z79.891 Long term (current) use of opiate analgesic; I10 Essential (primary) hypertension; G40.909 Epilepsy, unspecified, not intractable, without status epilepticus
CPT/HCPCS: OP; A4619; A9284; C1713; C1776; J1100; J2405; J2704; J3010; J3370; J7050; J7120; J7121

== ENCOUNTER 2021-10-19 13:47 | Outpatient (RCR) | payer MEDICARE, OTHER ==
[2021-10-19 14:28] VITALS: BP 101/71; PULSE 96; TEMP 98.7
== END 2021-10-19 15:43 ==
LOC: EUO 13:47
DX: M81.0 Age-related osteoporosis without current pathological fracture (principal)
CPT/HCPCS: J3111

== ENCOUNTER 2021-11-16 13:54 | Outpatient (CLI) | payer MEDICARE, OTHER ==
[~2021-11-16] VITALS: Ht 160 cm; Wt 57.2 kg
[2021-11-16 14:33] VITALS: BP 118/84; PULSE 98; TEMP 98.6
== END 2021-11-16 16:44 | disposition home or self-care (01) ==
LOC: EUO 13:54
DX: M81.0 Age-related osteoporosis without current pathological fracture (principal)
CPT/HCPCS: J3111

== ENCOUNTER 2021-12-14 13:44 | Outpatient (RCR) | payer MEDICARE, OTHER ==
[~2021-12-14] VITALS: Ht 160 cm; Wt 56.4 kg
[2021-12-14 14:00] VITALS: BP 108/75; PULSE 94; TEMP 98.7
== END 2021-12-14 14:20 | disposition home or self-care (01) ==
LOC: EUO 13:44
DX: M81.0 Age-related osteoporosis without current pathological fracture (principal)
CPT/HCPCS: J3111

== ENCOUNTER 2022-01-11 13:56 | Outpatient (CLI) | payer MEDICARE, OTHER ==
[~2022-01-11] VITALS: Ht 160 cm; Wt 57.2 kg
[2022-01-11 15:00] VITALS: BP 121/77; PULSE 95; TEMP 98.7
== END 2022-01-11 15:05 ==
LOC: EUO 13:56
DX: M81.0 Age-related osteoporosis without current pathological fracture (principal)
CPT/HCPCS: J3111

== ENCOUNTER 2022-08-01 12:43 | Emergency (ER) | payer MEDICARE, OTHER ==
[~2022-08-01] VITALS: Ht 154.9 cm; Wt 56.4 kg
[~2022-08-01 12:43] MED LIST changes: +SYNTHROID0.075 MG/T PO
[2022-08-01 12:54] VITALS: TEMP 98.5
[2022-08-01 13:35] VITALS: BP 153/87; PULSE 78
== END 2022-08-01 13:35 | disposition home or self-care (01) ==
LOC: COL.ER 12:43
DX: S70.01XA Contusion of right hip, initial encounter (principal); Z98.890 Other specified postprocedural states; W01.198A Fall on same level from slipping, tripping and stumbling with subsequent striking against other object, initial encounter; Y93.01 Activity, walking, marching and hiking

== ENCOUNTER 2023-07-31 09:44 | Emergency (ER) | payer MEDICARE, OTHER ==
[~2023-07-31] VITALS: Ht 154.9 cm; Wt 56.8 kg
[~2023-07-31 09:44] MED LIST changes: +B COMPLEX #11 TA1 PO; +BEET ROOT PO; +BORON PO; +FOLIC ACID 11 MG/TA1; +MELATONIN GUMMIES; +NATURAL IRON65 MG; +REPATHA SU140 MG/1 M SQ; +SENNA; +SEROQUEL 200MG200 MG PO; +VITAMINC500CH; +[UNRECOGNIZED DRUG - OTHER]
[2023-07-31 09:56] VITALS: TEMP 98.6
[2023-07-31 12:14] VITALS: BP 149/95; PULSE 86
== END 2023-07-31 12:14 | disposition home or self-care (01) ==
LOC: COL.ER 09:44
DX: S70.02XA Contusion of left hip, initial encounter (principal); S40.012A Contusion of left shoulder, initial encounter; W19.XXXA Unspecified fall, initial encounter

== ENCOUNTER → 2024-01-15 | Outpatient (CLI) | payer MEDICARE, OTHER ==
[~2024-01-15] MED LIST changes: +Gadoterate 15 ML VIAL IV ONE; +Iohexol 300 - 100 ML VIAL IV ONE; +NS 100 ML IV SCH
== END ==
LOC: COL.RAD 07:00
DX: G31.1 Senile degeneration of brain, not elsewhere classified (principal); Z86.79 Personal history of other diseases of the circulatory system
CPT/HCPCS: A9575; Q9967